=== PATIENT | female | born 1990 | race Caucasian/White ===

== ENCOUNTER 2017-08-21 15:57 | Emergency (ER) | payer SELFPAY ==
[2017-08-21 16:12] VITALS: BP 107/54; PULSE 63; RESP 18; TEMP 97.3
--- NOTE | 2017-08-21 16:44 | XR ---
Right ankle HISTORY: Pain 3 views of the right ankle Bone mineralization, joint spaces and alignment are maintained. No significant soft tissue swelling. No fracture or dislocation. IMPRESSION: No significant abnormality is evident.
--- NOTE | 2017-08-21 16:54 | ED ---
General Adult HPI - General Chief complaint: Extremity Injury, Lower Stated complaint: lump on ankle Time Seen by Provider: 08/21/17 16:06 Source: patient Mode of arrival: ambulatory Limitations: no limitations - History of Present Illness Initial comments: 27-year-old female patient presents to the emergency department today for evaluation of bumps to her right ankle. Patient states that these areas have been present for "months". She states that they become more painful and swollen when she stands for long periods of time. Patient states when she fully flexes her foot the pain increases. She states at this time they are not bothering her very much. States that she is tired of the pain and wants to find out what these spots are. She denies any new or old injury to the foot. She denies any numbness or tingling to the foot. Denies any difficulty in relating. Patient denies any recent fever, chills, shortness breath, chest pain , abdominal pain, nausea, vomiting, diarrhea, constipation, back pain, numbness , tingling, headache, visual changes, hematuria, dysuria, urinary frequency, urinary urgency, or any other complaints. - Related Data Previous Rx's Medication Instructions Recorded Omeprazole 20 mg PO DAILY #30 cap 01/24/16 Ranitidine HCl [Zantac] 150 mg PO BID #60 tab 01/24/16 Allergies Allergy/AdvReac Type Severity Reaction Status Date / Time No Known Allergies Allergy Verified 08/21/17 16:12 Review of Systems ROS Statement: Those systems with pertinent positive or pertinent negative responses have been documented in the HPI. ROS Other: All systems not noted in ROS Statement are negative. Past Medical History Past Medical History: No Reported History History of Any Multi-Drug Resistant Organisms: MRSA Date of last positivie culture/infection: 2013/buttocks MDRO Source:: MRSA Past Surgical History: No Surgical Hx Reported Past Psychological History: Anxiety, Depression Smoking Status: Current every day smoker Past Alcohol Use History: None Reported Past Drug Use History: Marijuana General Exam Limitations: no limitations General appearance: alert, in no apparent distress, other (This is a well- developed, well-nourished, healthy-appearing 27-year-old female patient in no acute distress. Vital signs upon presentation her temperature 97.3F, pulse 63 , respirations 18, blood pressure 107/54, pulse ox 98% on room air.) Eye exam: Present: normal appearance, PERRL, EOMI. Absent: scleral icterus, conjunctival injection, periorbital swelling ENT exam: Present: normal exam, normal oropharynx, mucous membranes moist Neck exam: Present: normal inspection. Absent: tenderness, meningismus, lymphadenopathy Respiratory exam: Present: normal lung sounds bilaterally. Absent: respiratory distress, wheezes, rales, rhonchi, stridor Cardiovascular Exam: Present: regular rate, normal rhythm, normal heart sounds. Absent: systolic murmur, diastolic murmur, rubs, gallop, clicks Extremities exam: Present: normal inspection, full ROM, normal capillary refill , other (Patient has a hard nodule to the right anterior ankle, and the right distal pretibial area. Skin is pink, warm, and dry. No evidence of erythema. Areas are firm to palpation. There is no evidence of abscess or fluctuance. Pedal posttibial pulses are 2+ and equal bilaterally. Patient has full range of motion of the joint without limitation. Patient complains of increased pain with full flexion of the right ankle joint.). Absent: tenderness, pedal edema, joint swelling, calf tenderness Neurological exam: Present: alert, oriented X3, CN II-XII intact Psychiatric exam: Present: normal affect, normal mood Skin exam: Present: warm, dry, intact, normal color. Absent: rash Course Vital Signs 08/21/17 16:09 Temperature 97.3 F L Pulse Rate 63 Respiratory 18 Rate Blood Pressure 107/54 O2 Sat by Pulse 98 Oximetry Medical Decision Making - Medical Decision Making 27 old female patient presented for evaluation of nodules to her right ankle. Physical exam was unremarkable. Did reveal 2 small nodules to the right anterior ankle and the right distal pretibial area. These areas were firm to palpation. No fluctuance or evidence of abscess or infection. Patient be discharged home to follow-up with orthopedics for further evaluation. She is also instructed to follow-up with her primary care physician. Patient came very angry at discharge saying that she didn't have time to follow up outpatient and she was upset that we weren't able to tell her exactly what was going out her leg. Patient was ambulated without difficulty. Vital signs are stable. She is instructed on appropriate Tylenol for pain control. She is instructed to return here immediately for any new, worsening, or concerning symptoms. - Radiology Data Radiology results: report reviewed, image reviewed 3 views of the right ankle show bone mineralization, joint spaces, and align are maintained. No significant soft tissue swelling. No fracture or dislocation. Impression by Dr. Marcano shows no significant abnormality. Disposition Clinical Impression: Ankle pain, Localized swelling, mass and lump, right lower limb Disposition: HOME SELF-CARE Condition: Good Instructions: Arthralgia (ED) Additional Instructions: Follow-up with orthopedics for further evaluation. Take ibuprofen or tylenol for pain control. Return here immediately for any new, worsening, or concerning symptoms. Referrals: None,Stated [Primary Care Provider] - 1-2 days Time of Disposition: 16:54
== END 2017-08-21 16:58 | disposition home or self-care (01) ==
LOC: EC 15:57
DX: M25.571 Pain in right ankle and joints of right foot (principal); R22.41 Localized swelling, mass and lump, right lower limb; F17.200 Nicotine dependence, unspecified, uncomplicated; Z86.14 Personal history of Methicillin resistant Staphylococcus aureus infection
CPT/HCPCS: 99283

== ENCOUNTER 2018-12-02 06:48 | Inpatient (IN) | payer OTHER ==
[2018-12-02] MEDS ORDERED: OXYTOCIN 10 UNIT/ML 1 ML VIAL IM PRN (06:53)
[2018-12-02] MEDS ORDERED: TERBUTALINE 1 MG/ML VIAL SQ PRN (06:53)
[2018-12-02] MEDS ORDERED: LIDOCAINE 0.5% (PF) 5 MG/ML (50 ML SDV) SQ PRN (06:53)
[2018-12-02] MEDS ORDERED: METHYLERGONOVINE 0.2 MG/ML 1 ML AMP IM PRN (06:53)
[2018-12-02] MEDS ORDERED: CARBOPROST TROMETHAMINE 250 MCG/ML 1 ML AMP IM PRN (06:53)
[2018-12-02] MEDS ORDERED: BUTORPHANOL 1 MG/ML 1 ML VIAL IV PRN (06:54)
--- NOTE | 2018-12-02 06:59 | P.HPOB ---
History of Present Illness H&P Date: 12/02/18 Chief Complaint: 39+ weeks, LGA, polyhydramnios, induction The patient is a 28-year-old 3 para 2001 admitted at 39-2/7 weeks as established by last menstrual period and confirmed by 9 week ultrasound. She is admitted for elective induction of labor with all signs reassuring. Her has been complicated only by the third trimester findings of a large for gestational age fetus with growth at greater than 97th percentile at approximately 35 weeks. Additionally polyhydramnios was discovered as well. On admission, all signs are reassuring. Group B strep status is negative. Obstetrical history: 3 para 2001 with 2 term vaginal deliveries without complications. Current statistics are listed in history present illness. EDC of 12/07/2018 was established by last menstrual period and confirmed by 9 week ultrasound. Laboratory workup demonstrates a blood type of A+ with a negative antibody screen. Rubella status is immune. Remainder of the laboratory workup was within normal limits the she initially had a positive Chlamydia culture which was treated and tested for cure. One hour Glucola was within normal limits and group B strep status is negative. Gynecologic history: Relatively unremarkable with no history of any significant ear infections aside from the Chlamydia detected at her first visit which was treated and cured. Review of Systems Review of systems is confined to history of present illness. Past Medical History Past Medical History: No Reported History History of Any Multi-Drug Resistant Organisms: MRSA Date of last positivie culture/infection: 2013/buttocks MDRO Source:: MRSA Past Surgical History: No Surgical Hx Reported Smoking Status: Former smoker Medications and Allergies Home Medications Medication Instructions Recorded Confirmed Type No Known Home Medications 09/26/18 09/26/18 History Allergies Allergy/AdvReac Type Severity Reaction Status Date / Time No Known Allergies Allergy Verified 09/26/18 19:06 Exam In general, this is a well-developed, well-nourished white female in no acute distress. Her heart has a regular rhythm and rate without murmur. Her lungs are clear to auscultation bilaterally in all fajardo. Her abdomen is gravid, nondistended, has normal active bowel sounds, is soft, nontender, and without any palpable masses aside from uterine fundus. Her extremities are without any cyanosis, clubbing, or significant edema and are nontender to palpation bilaterally. Digital cervical examination has demonstrated her cervix to be 2- 3 cm dilated, approximately 50-60% effaced, with the vertex in presentation at - 2 station. Assessment and Plan (1) Term Current Visit: Yes Status: Acute Code(s): Z34.80 - ENCOUNTER FOR SUPRVSN OF NORMAL , UNSP TRIMESTER SNOMED Code(s): 80120926 (2) Large for gestational age fetus Current Visit: Yes Status: Acute Code(s): VBK4256 - SNOMED Code(s): 983484378 Plan: The patient is admitted for an elective induction of labor understanding that there are some increased risks for section that may not exist if labor ensued on its own. As result, she will have Pitocin augmentation started and undergo artificial rupture of membranes. She'll have close maternal and surveillance and expectant management will be practiced. She is a good candidate for either IV or epidural analgesia, whichever she may choose.
[2018-12-02] MEDS ORDERED: OXYTOCIN 30 UNITS/500 ML NS 30 UNIT in SALINE 1 500ML.BAG IV SCH (07:00)
[2018-12-02 07:37] LABS: Basophils % (A) 0 %; Eosinophils # (A) 0.1 k/uL (0-0.7); Eosinophils % (A) 1 %; HCT 34.9 % (34.0-46.0); HGB 11.6 gm/dL (11.4-16.0); Lymphocytes # (A) 1.4 k/uL (1.0-4.8); Lymphocytes % (A) 14 %; MCH 30.2 pg (25.0-35.0); MCHC 33.1 g/dL (31.0-37.0); MCV 91.2 fL (80.0-100.0); Mean Platelet Volume 8.4; Monocytes # (A) 0.6 k/uL (0-1.0); Monocytes % (A) 7 %; Neutrophils # (A) 7.3 k/uL (1.3-7.7); Neutrophils % (A) 76 %; Platelet Count 226 k/uL (150-450); RBC 3.83 m/uL (3.80-5.40); RDW 13.1 % (11.5-15.5); WBC 9.6 k/uL (3.8-10.6)
[2018-12-02] MEDS: LACTATED RINGERS 1,000 ML IV SCH ×3 (07:42→11:44)
[2018-12-02 07:54] VITALS: BMI 34.9
[2018-12-02] MEDS ORDERED: ROPIVACAINE 100 MG, fentaNYL (PF) 200 MCG in SODIUM CHLORIDE 0.9% 76 ML EPIDURAL ONE (12:19)
[2018-12-02] MEDS ORDERED: SIMETHICONE 80 MG CHEWABLE PO PRN (17:39)
[2018-12-02] MEDS ORDERED: LANOLIN CREAM 5 GM TUBE TOPICAL PRN (17:39)
[2018-12-02] MEDS ORDERED: diphenhydrAMINE 25 MG CAP PO PRN (17:39)
[2018-12-02] MEDS ORDERED: HYDROCORTISONE 2.5% RECTAL CREAM 30 GM TUBE RECTAL PRN (17:39)
[2018-12-02] MEDS ORDERED: HYDROcodone/APAP 5-325MG 1 EACH TAB PO PRN (17:39)
[2018-12-02] MEDS ORDERED: BENZOCAINE/MENTHOL SPRAY 1 GM/SPRAY AEROSOL TOPICAL PRN (17:39)
[2018-12-02] MEDS ORDERED: diphenhydrAMINE 50 MG CAP PO PRN (17:39)
[2018-12-02] MEDS ORDERED: diphenhydrAMINE 50 MG/ML 1 ML VIAL IVP PRN ×2 (17:39)
[2018-12-02] MEDS ORDERED: ACETAMINOPHEN TAB 325 MG TAB PO PRN (17:39)
[2018-12-02] MEDS ORDERED: WITCH HAZEL 1 EACH MED..PAD TOPICAL PRN (17:39)
[2018-12-02] MEDS ORDERED: HYDROcodone/APAP 7.5-325MG 1 EACH TAB PO PRN (17:39)
[2018-12-02] MEDS ORDERED: ZOLPIDEM 5 MG TAB PO PRN (17:39)
--- NOTE | 2018-12-02 17:42 | P.PROBDLV ---
Vaginal Delivery Note - . Vaginal Delivery Note: The patient is a 28-year-old 3 para 2001 admitted at 39-2/7 weeks by good dating parameters. She is admitted for elective induction of labor with a suspected macrosomic fetus with estimated weight at greater than 97th percentile. She also was found polyhydramnios. On labor and delivery, all signs reassuring. She had Pitocin started and underwent artificial rupture of membranes demonstrating clear fluid. She progressed to the active phase of labor at which time an epidural catheter was placed for analgesia. She then made steady progress to the afternoon to complete and 0 station. She pushed over the course of approximately 30 minutes to a normal spontaneous vaginal delivery of a viable 9 lbs. 10 oz. baby boy with Apgars of 9 at 1 minute and 9 at 5 minutes delivered in the left occiput anterior position. There was a nuchal cord 1 which was reduced following delivery of the infant. The placenta was delivered spontaneously, intact, and grossly normal with a grossly normal three-vessel cord inserted slightly off of the center of the placental disc. There were no lacerations of the perineum, vagina, or cervix. Estimated blood loss was approximately 150 mL. There were no complications. All sponge, instrument, and needle counts were correct. Both mother and infant are resting comfortably in recovery.
[2018-12-02] MEDS ORDERED: OXYTOCIN 20 UNITS/1000 ML NS 1,000 ML IV SCH (17:45)
[2018-12-02] MEDS: SENNOSIDES-DOCUSATE SODIUM 1 EACH TAB PO SCH (20:33)
[2018-12-02] MEDS: IBUPROFEN 600 MG TAB PO PRN (20:33)
--- NOTE | 2018-12-03 07:38 | P.DS ---
Providers Date of admission: 12/02/18 06:48 Expected date of discharge: 12/03/18 Attending physician: Rikki Arboleda Primary care physician: Stated None - Discharge Diagnosis(es) (1) Term Current Visit: Yes Status: Acute (2) Large for gestational age fetus Current Visit: Yes Status: Acute (3) Normal spontaneous vaginal delivery Current Visit: Yes Status: Acute Hospital Course: The patient is a 28 year 3 para 2 scissors or 2 admitted at 39-2/7 weeks by good dating parameters. She is admitted for elective induction with all signs reassuring. Her was uncomplicated though the fetus was found to be a greater than 97th percentile growth in the third trimester and polyhydramnios was noted as well. Group B strep status was negative. On labor and delivery, she had Pitocin started followed by artificial rupture of membranes. She had an epidural catheter placed for analgesia and then made routine progress through the active phase of labor to complete. She pushed to a normal spontaneous vaginal delivery of a viable 9 lbs. 10 oz. baby boy with Apgars of 9 at 1 minute and 9 at 5 minutes. Her course was unremarkable with vital signs remained stable and her temperature was afebrile throughout. She was deemed stable for discharge on day #1 was discharged home to follow-up in the office in 6 weeks' time routinely. Discharge instructions included calling for any significantly increased bleeding or foul-smelling lochia, significantly increased fever or abdominal pain, perineal complaints, breast complaints, or anything else that concerned her. She is additionally instructed to have nothing in the vagina for at least 6 weeks time to include intercourse. She understood her instructions and agrees to follow up as noted above. Discharge medications included only over- the-counter analgesic pain medications and continue vitamins as she has opted to breast-feed. Maternal blood type is A+ and rubella status is immune. Procedures: #1. Pitocin induction #2. Artificial rupture of membranes #3. Epidural analgesia #4. Normal spontaneous vaginal delivery Patient Condition at Discharge: Good Plan - Discharge Summary New Discharge Prescriptions: No Action No Known Home Medications Discharge Medication List No Known Home Medications 09/26/18 [History] Follow up Appointment(s)/Referral(s): Rikki Arboleda MD [STAFF PHYSICIAN] - 6 Weeks Discharge Disposition: HOME SELF-CARE
[2018-12-03] MEDS: SENNOSIDES-DOCUSATE SODIUM 1 EACH TAB PO SCH (08:02)
[2018-12-03] MEDS: IBUPROFEN 600 MG TAB PO PRN (13:17)
[2018-12-03 17:03] VITALS: BP 120/63; PULSE 81; RESP 16; TEMP 98.1
== END 2018-12-03 18:50 | disposition home or self-care (01) | DRG 807 ==
LOC: 4FBP 06:48
PROVIDERS: ADMIT Obstetrics & Gynecology; ATTEND Obstetrics & Gynecology
PROC: 10E0XZZ Delivery of Products of Conception, External Approach (ICD-10-PCS; principal; 2018-12-02)
PROC: 3E033VJ Introduction of Other Hormone into Peripheral Vein, Percutaneous Approach (ICD-10-PCS; 2018-12-02)
PROC: 10907ZC Drainage of Amniotic Fluid, Therapeutic from Products of Conception, Via Natural or Artificial Opening (ICD-10-PCS; 2018-12-02)
PROC: 00HU33Z Insertion of Infusion Device into Spinal Canal, Percutaneous Approach (ICD-10-PCS; 2018-12-02)
PROC: 3E0R3BZ Introduction of Anesthetic Agent into Spinal Canal, Percutaneous Approach (ICD-10-PCS; 2018-12-02)
DX: O40.3XX0 Polyhydramnios, third trimester, not applicable or unspecified (principal); Z37.0 Single live birth; O36.63X0 Maternal care for excessive fetal growth, third trimester, not applicable or unspecified; O69.81X0 Labor and delivery complicated by cord around neck, without compression, not applicable or unspecified; Z3A.39 39 weeks gestation of pregnancy; Z86.14 Personal history of Methicillin resistant Staphylococcus aureus infection; Z87.891 Personal history of nicotine dependence
CPT/HCPCS: 85025; 86850; 86900; 86901

== ENCOUNTER 2019-01-25 08:30 | Emergency (ER) | payer OTHER ==
[2019-01-25] MEDS ORDERED: ONDANSETRON 4 MG/2 ML VIAL IVP STA (08:54)
[2019-01-25] MEDS ORDERED: SODIUM CHLORIDE 0.9% 1,000 ML IV STA ×2 (08:54)
[2019-01-25] MEDS ORDERED: PANTOPRAZOLE 40 MG/10 ML VIAL IVP STA (08:54)
[2019-01-25] MEDS ORDERED: MAG HYDROX/AL HYDROX/SIMETH 30 ML, HYOSCYAMINE ELIXIR 10 ML, CIMETIDINE HCL 300 MG, LID... PO STA ×4 (08:55)
--- NOTE | 2019-01-25 08:56 | ED ---
Abdominal Pain HPI - General Chief Complaint: Abdominal Pain Stated Complaint: HEARTBURN, NAUSEA, UPPER ABDOMINAL PAIN Time Seen by Provider: 01/25/19 08:42 Source: patient, RN notes reviewed, old records reviewed Mode of arrival: ambulatory Limitations: no limitations - History of Present Illness Initial Comments: Patient is a 28-year-old female presents emergency department today with onset of right upper quadrant epigastric abdominal pain. She complains of heartburn type symptoms. She states symptoms started at 11 PM. She denies any chest pain or shortness of breath. Patient states that she's had no triggering foods to cause the onset of her pain. - Related Data Previous Rx's Medication Instructions Recorded Omeprazole 40 mg PO DAILY #20 capsule. 01/25/19 Ondansetron Odt [Zofran Odt] 4 mg PO Q8HR PRN #20 tab 01/25/19 Allergies Allergy/AdvReac Type Severity Reaction Status Date / Time No Known Allergies Allergy Verified 01/25/19 08:35 Review of Systems ROS Statement: Those systems with pertinent positive or pertinent negative responses have been documented in the HPI. ROS Other: All systems not noted in ROS Statement are negative. Past Medical History Past Medical History: No Reported History History of Any Multi-Drug Resistant Organisms: MRSA Date of last positivie culture/infection: 2013/buttocks MDRO Source:: MRSA Past Surgical History: No Surgical Hx Reported Past Anesthesia/Blood Transfusion Reactions: No Reported Reaction Past Psychological History: No Psychological Hx Reported, Anxiety, Depression Smoking Status: Former smoker Past Alcohol Use History: None Reported Past Drug Use History: None Reported - Past Family History Mother Family Medical History: Hypertension General Exam - General Exam Comments Initial Comments: Well-appearing 28-year-old female. No significant distress. Limitations: no limitations General appearance: alert, in no apparent distress Head exam: Present: atraumatic, normocephalic, normal inspection Eye exam: Present: normal appearance, PERRL, EOMI. Absent: scleral icterus, conjunctival injection, periorbital swelling ENT exam: Present: normal exam, mucous membranes moist Neck exam: Present: normal inspection. Absent: tenderness, meningismus, lymphadenopathy Respiratory exam: Present: normal lung sounds bilaterally. Absent: respiratory distress, wheezes, rales, rhonchi, stridor Cardiovascular Exam: Present: regular rate, normal rhythm, normal heart sounds. Absent: systolic murmur, diastolic murmur, rubs, gallop, clicks GI/Abdominal exam: Present: soft, tenderness (Epigastric right upper quadrant te nderness.), normal bowel sounds. Absent: distended, guarding, rebound, rigid Extremities exam: Present: normal inspection, full ROM, normal capillary refill. Absent: tenderness, pedal edema, joint swelling, calf tenderness Back exam: Present: normal inspection Neurological exam: Present: alert, oriented X3, CN II-XII intact Psychiatric exam: Present: normal affect, normal mood Course Vital Signs 01/25/19 08:35 Temperature 98.2 F Pulse Rate 73 Respiratory 18 Rate Blood Pressure 125/78 O2 Sat by Pulse 98 Oximetry Medical Decision Making - Medical Decision Making Patient is a 28-year-old female with onset of GERD-like symptoms epigastric pain starting at 11 PM last night. She denies any specific triggering foods but did state later, she had some Unasyn but her fingers. Patient complains of heartburn-like symptoms. On exam she did have some right upper quadrant epiga stric tenderness. She was given IV fluids labwork obtained. Lab work including liver enzymes and kidney function was unremarkable. Urinalysis shows 10 white blood cells of 9 squamous cells. Concern for him contamination. No signs of UTI. Patient at this time has a normal KUB. Patient feels better after receiving GI cocktail proptotic. I discussed that she should take daily and acetaminophen. Discussed possibility of an ulcer. Patient advised on food triggers and close follow-up with PCP. All questions answered return parameters were discussed. - Lab Data Result diagrams: 01/25/19 09:14 01/25/19 09:14 Lab Results 01/25/19 01/25/19 01/25/19 Range/Units 09:14 09:14 09:14 WBC 11.2 H (3.8-10.6) k/uL RBC 4.54 (3.80-5.40) m/uL Hgb 12.8 (11.4-16.0) gm/dL Hct 39.9 (34.0-46.0) % MCV 87.9 (80.0-100.0) fL MCH 28.2 (25.0-35.0) pg MCHC 32.1 (31.0-37.0) g/dL RDW 13.6 (11.5-15.5) % Plt Count 254 (150-450) k/uL Neutrophils % 89 % Lymphocytes % 7 % Monocytes % 3 % Eosinophils % 1 % Basophils % 0 % Neutrophils # 9.9 H (1.3-7.7) k/uL Lymphocytes # 0.8 L (1.0-4.8) k/uL Monocytes # 0.3 (0-1.0) k/uL Eosinophils # 0.1 (0-0.7) k/uL Basophils # 0.0 (0-0.2) k/uL PT 9.5 (9.0-12.0) sec INR 0.9 (<1.2) APTT 23.2 (22.0-30.0) sec Sodium 139 (137-145) mmol/L Potassium 4.4 (3.5-5.1) mmol/L Chloride 107 (98-107) mmol/L Carbon Dioxide 25 (22-30) mmol/L Anion Gap 7 mmol/L BUN 14 (7-17) mg/dL Creatinine 0.57 (0.52-1.04) mg/dL Est GFR (CKD-EPI)AfAm >90 (>60 ml/min/1.73 sqM) Est GFR (CKD-EPI)NonAf >90 (>60 ml/min/1.73 sqM) Glucose 115 H (74-99) mg/dL Calcium 9.4 (8.4-10.2) mg/dL Total Bilirubin 0.3 (0.2-1.3) mg/dL AST 26 (14-36) U/L ALT 28 (9-52) U/L Alkaline Phosphatase 63 (38-126) U/L Total Protein 5.9 L (6.3-8.2) g/dL Albumin 3.7 (3.5-5.0) g/dL Amylase <30 L (30-110) U/L Lipase 58 (23-300) U/L Urine Color Urine Appearance (Clear) Urine pH (5.0-8.0) Ur Specific [place] (1.001-1.035) Urine Protein (Negative) Urine Glucose (UA) (Negative) Urine Ketones (Negative) Urine Blood (Negative) Urine Nitrite (Negative) Urine Bilirubin (Negative) Urine Urobilinogen (<2.0) mg/dL Ur Leukocyte Esterase (Negative) Urine RBC (0-5) /hpf Urine WBC (0-5) /hpf Ur Squamous Epith Cells (0-4) /hpf Urine Bacteria (None) /hpf 01/25/19 Range/Units 09:14 WBC (3.8-10.6) k/uL RBC (3.80-5.40) m/uL Hgb (11.4-16.0) gm/dL Hct (34.0-46.0) % MCV (80.0-100.0) fL MCH (25.0-35.0) pg MCHC (31.0-37.0) g/dL RDW (11.5-15.5) % Plt Count (150-450) k/uL Neutrophils % % Lymphocytes % % Monocytes % % Eosinophils % % Basophils % % Neutrophils # (1.3-7.7) k/uL Lymphocytes # (1.0-4.8) k/uL Monocytes # (0-1.0) k/uL Eosinophils # (0-0.7) k/uL Basophils # (0-0.2) k/uL PT (9.0-12.0) sec INR (<1.2) APTT (22.0-30.0) sec Sodium (137-145) mmol/L Potassium (3.5-5.1) mmol/L Chloride (98-107) mmol/L Carbon Dioxide (22-30) mmol/L Anion Gap mmol/L BUN (7-17) mg/dL Creatinine (0.52-1.04) mg/dL Est GFR (CKD-EPI)AfAm (>60 ml/min/1.73 sqM) Est GFR (CKD-EPI)NonAf (>60 ml/min/1.73 sqM) Glucose (74-99) mg/dL Calcium (8.4-10.2) mg/dL Total Bilirubin (0.2-1.3) mg/dL AST (14-36) U/L ALT (9-52) U/L Alkaline Phosphatase (38-126) U/L Total Protein (6.3-8.2) g/dL Albumin (3.5-5.0) g/dL Amylase (30-110) U/L Lipase (23-300) U/L Urine Color Light Yellow Urine Appearance Cloudy H (Clear) Urine pH 6.5 (5.0-8.0) Ur Specific [place] 1.009 (1.001-1.035) Urine Protein Negative (Negative) Urine Glucose (UA) Negative (Negative) Urine Ketones Negative (Negative) Urine Blood Negative (Negative) Urine Nitrite Negative (Negative) Urine Bilirubin Negative (Negative) Urine Urobilinogen <2.0 (<2.0) mg/dL Ur Leukocyte Esterase Large H (Negative) Urine RBC 2 (0-5) /hpf Urine WBC 10 H (0-5) /hpf Ur Squamous Epith Cells 9 H (0-4) /hpf Urine Bacteria Rare H (None) /hpf Disposition Clinical Impression: Peptic gastritis Disposition: HOME SELF-CARE Condition: Good Instructions (If sedation given, give patient instructions): Gastroesophageal Reflux Disease (ED) Additional Instructions: Patient resting medications as prescribed. Follow-up with primary care doctor. If any alarming signs or symptoms occur return to emergency department for reevaluation. Advised to have a bland diet for the next 24-48 hours.He foods or chocolate or acidic foods. Prescriptions: Omeprazole 40 mg PO DAILY #20 capsule. Ondansetron Odt [Zofran Odt] 4 mg PO Q8HR PRN #20 tab PRN Reason: Nausea Is patient prescribed a controlled substance at d/c from ED?: No Referrals: None,Stated [Primary Care Provider] - 1-2 days
[2019-01-25 09:25] LABS: Basophils % (A) 0 %; Eosinophils # (A) 0.1 k/uL (0-0.7); Eosinophils % (A) 1 %; HCT 39.9 % (34.0-46.0); HGB 12.8 gm/dL (11.4-16.0); Lymphocytes # (A) 0.8 k/uL (1.0-4.8); Lymphocytes % (A) 7 %; MCH 28.2 pg (25.0-35.0); MCHC 32.1 g/dL (31.0-37.0); MCV 87.9 fL (80.0-100.0); Mean Platelet Volume 6.8; Monocytes # (A) 0.3 k/uL (0-1.0); Monocytes % (A) 3 %; Neutrophils # (A) 9.9 k/uL (1.3-7.7); Neutrophils % (A) 89 %; Platelet Count 254 k/uL (150-450); RBC 4.54 m/uL (3.80-5.40); RDW 13.6 % (11.5-15.5); WBC 11.2 k/uL (3.8-10.6)
[2019-01-25 09:33] LABS: INR 0.9 (<1.2); Partial Thromboplastin Time 23.2 sec (22.0-30.0); Prothrombin Time 9.5 sec (9.0-12.0)
--- NOTE | 2019-01-25 09:37 | XR ---
EXAMINATION TYPE: XR KUB , 2 VIEWS DATE OF EXAM ORDERED: 01/25/2019 HISTORY: abdominal pain. COMPARISON: None. FINDINGS: The lung bases are clear. The abdominal gas pattern is within normal limits. There is no evidence of obstruction or free air. N o unusual calcifications are seen. IMPRESSION: NO ACUTE INTRA-ABDOMINAL ABNORMALITY. FINDINGS MAY REFLECT EARLY ILEUS.
[2019-01-25 09:40] LABS: ALT 28 U/L (9-52); AST 26 U/L (14-36); Albumin 3.7 g/dL (3.5-5.0); Alkaline Phosphatase 63 U/L (38-126); Amylase <30 U/L (30-110); Anion Gap 7 mmol/L; Appearance,Urine Cloudy (Clear); Bacteria,Urine Rare /hpf; Bilirubin,Urine Negative (Negative); Blood Urea Nitrogen 14 mg/dL (7-17); Blood,Urine Negative (Negative); Calcium 9.4 mg/dL (8.4-10.2); Carbon Dioxide 25 mmol/L (22-30); Chloride 107 mmol/L (98-107); Color,Urine Light Yellow; Glucose 115 mg/dL (74-99); Glucose,Urine (UA) Negative (Negative); Ketones,Urine Negative (Negative); Leukocyte Esterase,Urine Large (Negative); Lipase 58 U/L (23-300); Nitrite,Urine Negative (Negative); PH, Urine 6.5 (5.0-8.0); Potassium 4.4 mmol/L (3.5-5.1); Protein,Urine Negative (Negative); RBC,Urine 2 /hpf (0-5); Sodium 139 mmol/L (137-145); Specific Gravity,Urine 1.009 (1.001-1.035); Squamous Epithelial Cell,Urine 9 /hpf (0-4); Total Bilirubin 0.3 mg/dL (0.2-1.3); Total Protein 5.9 g/dL (6.3-8.2); Urobilinogen,Urine <2.0 mg/dL (<2.0); WBC,Urine 10 /hpf (0-5)
[2019-01-25 10:27] VITALS: BP 128/70; PULSE 71; RESP 16; TEMP 97.9
== END 2019-01-25 10:26 | disposition home or self-care (01) ==
LOC: EC 08:30
DX: K29.70 Gastritis, unspecified, without bleeding (principal); Z87.891 Personal history of nicotine dependence; Z86.14 Personal history of Methicillin resistant Staphylococcus aureus infection
CPT/HCPCS: 36415; 80053; 82150; 83690; 85025; 85610; 85730; 81001; 74018; 99284; 96374; 96375; 96361; J2405; C9113

== ENCOUNTER 2019-01-29 23:26 | Inpatient (IN) | payer OTHER ==
--- NOTE | 2019-01-29 23:41 | ED ---
Chest Pain HPI - General Chief Complaint: Chest Pain Stated Complaint: Chest Pain x 1 wk Time Seen by Provider: 01/29/19 23:39 Source: patient Mode of arrival: ambulatory Limitations: no limitations - History of Present Illness Initial Comments: Stephany is 28 her old female presents to the emergency department today for evaluation of persistent chest pain. Patient was seen and evaluated last week at which time to be lower and was thought to be GERD. However today patient reports the pain seems to be in her bilateral lower chest, is pleuritic in kevin ure worse with inspiration or movement she reports she feels better when she is curled up in a ball. She reports feeling short of breath because she has pain with deep inspiration. She denies any cough, fevers or chills. Patient has no cardiac history. Patient is 2 months she has no history of DVT or PE in the past. She is a nonsmoker. She reports she's been compliant with recommendations for GERD diet and is been taking [id number] medications however she continues to have this discomfort. She reports that yesterday she took Motrin before bedtime and that made her slightly more comfortable although she remained in pain, tonight she took Motrin with no relief which prompted her to come to the ER for evaluation. - Related Data Previous Rx's Medication Instructions Recorded Omeprazole 40 mg PO DAILY #20 capsule. 01/25/19 Ondansetron Odt [Zofran Odt] 4 mg PO Q8HR PRN #20 tab 01/25/19 Allergies Allergy/AdvReac Type Severity Reaction Status Date / Time No Known Allergies Allergy Verified 01/25/19 08:35 Review of Systems ROS Statement: Those systems with pertinent positive or pertinent negative responses have been documented in the HPI. ROS Other: All systems not noted in ROS Statement are negative. EKG Findings - EKG Comments: EKG Findings:: EKG was obtained at 2340, rate of 73 rhythm is sinus there is a normal axis her normal intervals, MI 146, QRS 110, QTC is 469 there does appear to be an incomplete right bundle branch block there are no acute ST elevations or depressions there is no evidence of acute ischemia or infarction. When EKG was compared to previous bundle branch block is persistent and there is no significant change in morphology Past Medical History Past Medical History: No Reported History History of Any Multi-Drug Resistant Organisms: MRSA Date of last positivie culture/infection: 2013/buttocks MDRO Source:: MRSA Past Surgical History: No Surgical Hx Reported Past Anesthesia/Blood Transfusion Reactions: No Reported Reaction Past Psychological History: Anxiety, Depression Smoking Status: Former smoker Past Alcohol Use History: None Reported Past Drug Use History: None Reported - Past Family History Mother Family Medical History: Hypertension General Exam - General Exam Comments Initial Comments: Physical Exam GENERAL: Patient is well-developed and well-nourished. Appears uncomfortable HENT: Normocephalic, Atraumatic. EYES: PERRL, EOMI PULMONARY: Unlabored respirations. No audible rales rhonchi or wheezing was noted. CARDIOVASCULAR: There is a regular rate and rhythm without any murmurs gallops or rubs. ABDOMEN: Mild tenderness to palpation in epigastrium SKIN: Skin is clear with no lesions or rashes and otherwise unremarkable. : Deferred NEUROLOGIC: Patient is alert and oriented x3. Moving all extremities spontaneously MUSCULOSKELETAL: Normal extremities with adequate strength and full range of motion. No lower extremity swelling or edema. No calf tenderness. PSYCHIATRIC: Normal psychiatric evaluation. Limitations: no limitations Limitations: no limitations Course Vital Signs 01/29/19 23:30 Temperature 97.7 F Pulse Rate 68 Respiratory 18 Rate Blood Pressure 113/76 O2 Sat by Pulse 100 Oximetry Chest Pain MDM - MDM Patient was seen and evaluated history was obtained from the patient, patient with pain and bilateral lower chest and epigastrium with associated shortness of breath Patient currently being treated for GERD Labs and imaging were ordered D-dimer was elevated CTA was ordered and revealed no acute process in the lungs however there is concern for inflammation of the gallbladder soon ultrasound was ordered which did confirm acute cholecystitis. Patient care was discussed with general surgeon monument setter helper Dr. Mcgee who recommends IV antibiotics patient to be placed in observation for likely surgery later in the day. Patient was updated on plan. Disposition Clinical Impression: Acute cholecystitis Disposition: ADMITTED IP TO THIS HOSP Condition: Stable Is patient prescribed a controlled substance at d/c from ED?: No Referrals: None,Stated [Primary Care Provider] - 1-2 days
--- NOTE | 2019-01-30 00:38 | XR ---
EXAM: XR Chest, 2 Views CLINICAL HISTORY: ITS.REASON XR Reason: Pain TECHNIQUE: Frontal and lateral views of the chest. COMPARISON: No relevant prior studies available. FINDINGS: Lungs: No consolidation. Pleural space: Unremarkable. No pneumothorax. Heart: Unremarkable. Mediastinum: Unremarkable. Bones/joints: No acute fracture. IMPRESSION: No acute cardiopulmonary process.
[2019-01-30 00:46] LABS: ALT 31 U/L (9-52); AST 21 U/L (14-36); Albumin 3.5 g/dL (3.5-5.0); Alkaline Phosphatase 65 U/L (38-126); Anion Gap 7 mmol/L; Blood Urea Nitrogen 11 mg/dL (7-17); Carbon Dioxide 23 mmol/L (22-30); Chloride 107 mmol/L (98-107); Glucose 96 mg/dL (74-99); Lipase 47 U/L (23-300); Magnesium 1.8 mg/dL (1.6-2.3); Potassium 3.8 mmol/L (3.5-5.1); Sodium 137 mmol/L (137-145); Total Bilirubin 0.4 mg/dL (0.2-1.3); Total Protein 5.7 g/dL (6.3-8.2)
[2019-01-30 00:49] LABS: Basophils % (A) 0 %; Eosinophils # (A) 0.2 k/uL (0-0.7); Eosinophils % (A) 1 %; HCT 37.3 % (34.0-46.0); HGB 12.1 gm/dL (11.4-16.0); Lymphocytes % (A) 18 %; MCH 28.5 pg (25.0-35.0); MCHC 32.4 g/dL (31.0-37.0); MCV 87.8 fL (80.0-100.0); Mean Platelet Volume 7.3; Monocytes # (A) 0.7 k/uL (0-1.0); Monocytes % (A) 6 %; Neutrophils # (A) 8.1 k/uL (1.3-7.7); Neutrophils % (A) 73 %; Platelet Count 327 k/uL (150-450); RBC 4.25 m/uL (3.80-5.40); RDW 13.7 % (11.5-15.5); WBC 11.1 k/uL (3.8-10.6)
[2019-01-30] MEDS ORDERED: KETOROLAC 30 MG/ML 1 ML VIAL IVP ONE (01:03)
--- NOTE | 2019-01-30 01:46 | CT ---
EXAM: CT Angiography Chest With Intravenous Contrast CLINICAL HISTORY: ITS.REASON CT Reason: pleuritic pain, elevated dimer TECHNIQUE: Axial computed tomographic angiography images of the chest with intravenous contrast using pulmonary embolism protocol. CTDI is 9.7 mGy and DLP is 430.1 mGy-cm. This CT exam was performed using one or more of the following dose reduction techniques: automated exposure control, adjustment of the mA and/or kV according to patient size, and/or use of iterative reconstruction technique. MIP reconstructed images were created and reviewed. COMPARISON: No relevant prior studies available. FINDINGS: Limitations: Slightly limited by motion artifact. Pulmonary arteries: No evidence of PE. Questionable areas of low attenuation in the left lower lobe likely related to artifact. Aorta: No aortic aneurysm or dissection. Lungs: Minor atelectasis. Minimal peribronchial thickening. No consolidation. Pleural space: No significant effusion. No pneumothorax. Heart: Trace pericardial fluid. Bones/joints: No acute fracture. Soft tissues: Unremarkable as visualized. Lymph nodes: Unremarkable. Gallbladder and bile ducts: Cholelithiasis with gallbladder wall thickening, incompletely imaged but concerning for cholecystitis. IMPRESSION: 1. No evidence of PE or aortic dissection. 2. Cholelithiasis with gallbladder wall thickening, incompletely imaged but concerning for cholecystitis. Correlate clinically, ultrasound may be considered if indicated. 3. Trace pericardial fluid.
--- NOTE | 2019-01-30 04:23 | US ---
EXAM: US Abdomen Limited, Right Upper Quadrant CLINICAL HISTORY: ITS.REASON US Reason: Pain, Ct findings concerning TECHNIQUE: Real-time ultrasound of the right upper quadrant with image documentation. COMPARISON: CT chest 01/30/19. FINDINGS: Liver: The liver measures 18.4 cm in length. Gallbladder: Cholelithiasis. The gallbladder wall measures 5 mm. Positive sonographic Deleon's sign. Common bile duct: The common bile duct measures 8 mm. Pancreas: Not well visualized. Right kidney: The right kidney measures 10.3 cm in length. No significant hydronephrosis. IMPRESSION: Cholelithiasis with gallbladder wall thickening, dilated common bile duct, and positive sonographic Deleon's sign. Findings are compatible with cholecystitis.
[2019-01-30] MEDS ORDERED: NALOXONE 0.4 MG/ML 1 ML VIAL IV PRN (04:42)
[2019-01-30] MEDS ORDERED: PIPERACILLIN-TAZOBACTAM 3.375 GM in SODIUM CHLORIDE 0.9% 100 ML IVPB SCH (05:00)
[2019-01-30] MEDS ORDERED: ONDANSETRON 4 MG/2 ML VIAL IVP STA (05:04)
[2019-01-30] MEDS: SODIUM CHLORIDE 0.9% 1,000 ML IV SCH ×2 (05:23→16:54)
[2019-01-30] MEDS: MORPHINE SULFATE 4 MG/ML SYRINGE IV PRN ×2 (05:24→11:06)
[2019-01-30 06:28] VITALS: BMI 33.0
[2019-01-30] MEDS ORDERED: ceFAZolin IN SWFI 2 GM/20 ML SYRINGE IVP ONE (07:26)
[2019-01-30] MEDS ORDERED: IV FLUID CONTINUATION 1,000 ML IV ONE (11:50)
--- NOTE | 2019-01-30 12:06 | P.GSHP ---
History of Present Illness H&P Date: 01/30/19 CHIEF COMPLAINT: Cholecystitis HISTORY OF PRESENT ILLNESS: The patient is a 28-year-old female who presents with history of atypical chest pain initially presumed for a pulmonary embolism. She also reported epigastric including right upper quadrant abdominal pain with gastroesophageal reflux disease for over 1 week duration of sharp character. She underwent diagnostic studies for her gallbladder consistent with acute cholecystitis. She has been admitted for acute cholecystitis. She reports just giving 2 months ago. PAST MEDICAL HISTORY: Please see list PAST SURGICAL HISTORY: Please see list MEDICATIONS: Please see list ALLERGIES: Denies. SOCIAL HISTORY: Please see list FAMILY HISTORY: Pertinent for gallbladder disease REVIEW OF ORGAN SYSTEMS: CONSTITUTIONAL: No reports of fevers or chills. HEENT: Denies any troubles with the vision or hearing. ENDOCRINE: No reports of hypothyroidism. No diabetes. RESPIRATORY: No recent pneumonias. CARDIOVASCULAR: Denies chest pain or palpitations GI: No blood in stools or constipation. Has GERD. MUSCULOSKELETAL: Has occasional joint pain including back pain. NEURO: No seizure disorders or headaches. No recent stroke. PSYCH: No current depression or suicidal ideation. GENITOURINARY: No active blood in urine. No urinary hesitancy. HEMATOLOGIC: No personal or family history of DVTs or pulmonary emboli. SKIN: No skin cancer. PHYSICAL EXAM: VITAL SIGNS: Afebrile vital signs stable GENERAL: Well-developed pleasant in no acute distress. HEENT: No scleral icterus. Extraocular movements grossly intact. Moist buccal mucosa. NECK: Supple without lymphadenopathy. CHEST: Unlabored respirations. Equal bilateral excursions. CARDIOVASCULAR: Regular rate regular rhythm rhythm. Distal 2+ pulses. ABDOMEN: Soft, nondistended. Tender along the epigastrium and right upper quadrant. MUSCULOSKELETAL: No clubbing, cyanosis, or edema. NEURO: Cranial nerves II to XII within normal limits. No focal or lateralizing s igns. PSYCH: Alert and oriented to person, place and time. SKIN: Well-perfused good skin turgor. ASSESSMENT: 1. Epigastric and right upper quadrant abdominal pain 2. Chronic cholecystitis 3. Symptomatic gallstones. PLAN: 1. Will need a robotic cholecystectomy possible open. Benefits and risks were described. 2. Heparin for DVT prophylaxis 5000 units. 3. Start antibiotics. 4. Possible placement of drain also described with full inpatient admission Past Medical History Past Medical History: No Reported History History of Any Multi-Drug Resistant Organisms: MRSA Date of last positivie culture/infection: 2013/buttocks MDRO Source:: MRSA Past Surgical History: No Surgical Hx Reported Past Anesthesia/Blood Transfusion Reactions: No Reported Reaction Past Psychological History: Anxiety, Depression Smoking Status: Never smoker Past Alcohol Use History: None Reported Past Drug Use History: None Reported - Past Family History Mother Family Medical History: Hypertension Medications and Allergies Home Medications Medication Instructions Recorded Confirmed Type No Known Home Medications 01/30/19 01/30/19 History Allergies Allergy/AdvReac Type Severity Reaction Status Date / Time No Known Allergies Allergy Verified 01/30/19 08:23 Surgical - Exam Vital Signs Temp Pulse Resp BP Pulse Ox 97.7 F 68 18 113/76 100 01/29/19 23:30 01/29/19 23:30 01/29/19 23:30 01/29/19 23:30 01/29/19 23:30 Results - Labs 01/30/19 00:15 01/30/19 00:15 Abnormal Lab Results - Last 24 Hours (Table) 01/30/19 01/30/19 01/30/19 Range/Units 00:15 00:15 00:15 WBC 11.1 H (3.8-10.6) k/uL Neutrophils # 8.1 H (1.3-7.7) k/uL D-Dimer 1.38 H (<0.60) mg/L FEU Total Protein 5.7 L (6.3-8.2) g/dL Diabetes panel 01/30/19 Range/Units 00:15 Sodium 137 (137-145) mmol/L Potassium 3.8 (3.5-5.1) mmol/L Chloride 107 (98-107) mmol/L Carbon Dioxide 23 (22-30) mmol/L BUN 11 (7-17) mg/dL Creatinine 0.63 (0.52-1.04) mg/dL Glucose 96 (74-99) mg/dL Calcium 9.0 (8.4-10.2) mg/dL AST 21 (14-36) U/L ALT 31 (9-52) U/L Alkaline Phosphatase 65 (38-126) U/L Total Protein 5.7 L (6.3-8.2) g/dL Albumin 3.5 (3.5-5.0) g/dL Calcium panel 01/30/19 Range/Units 00:15 Calcium 9.0 (8.4-10.2) mg/dL Albumin 3.5 (3.5-5.0) g/dL Pituitary panel 01/30/19 Range/Units 00:15 Sodium 137 (137-145) mmol/L Potassium 3.8 (3.5-5.1) mmol/L Chloride 107 (98-107) mmol/L Carbon Dioxide 23 (22-30) mmol/L BUN 11 (7-17) mg/dL Creatinine 0.63 (0.52-1.04) mg/dL Glucose 96 (74-99) mg/dL Calcium 9.0 (8.4-10.2) mg/dL Adrenal panel 01/30/19 Range/Units 00:15 Sodium 137 (137-145) mmol/L Potassium 3.8 (3.5-5.1) mmol/L Chloride 107 (98-107) mmol/L Carbon Dioxide 23 (22-30) mmol/L BUN 11 (7-17) mg/dL Creatinine 0.63 (0.52-1.04) mg/dL Glucose 96 (74-99) mg/dL Calcium 9.0 (8.4-10.2) mg/dL Total Bilirubin 0.4 (0.2-1.3) mg/dL AST 21 (14-36) U/L ALT 31 (9-52) U/L Alkaline Phosphatase 65 (38-126) U/L Total Protein 5.7 L (6.3-8.2) g/dL Albumin 3.5 (3.5-5.0) g/dL - Imaging CT scan - abdomen: report reviewed, image reviewed CT scan - pelvis: report reviewed, image reviewed (Acute cholecystitis) US - abdomen: report reviewed, image reviewed Assessment and Plan (1) state Current Visit: Yes Status: Acute Code(s): Z39.2 - ENCOUNTER FOR ROUTINE FOLLOW-UP SNOMED Code(s): 03123992 (2) Acute cholecystitis Current Visit: Yes Status: Acute Code(s): K81.0 - ACUTE CHOLECYSTITIS S NOMED Code(s): 05574386
[2019-01-30] MEDS ORDERED: INDOCYANINE GREEN 25 MG VIAL IV STA (12:07)
[2019-01-30] MEDS ORDERED: ROCURONIUM BROMIDE 10 MG/ML 10 ML VIAL IV ONE (12:25)
[2019-01-30] MEDS ORDERED: PROPOFOL 10 MG/ML 20 ML VIAL IV ONE (12:25)
[2019-01-30] MEDS ORDERED: GLYCOPYRROLATE 0.2 MG/ML 2 ML VIAL ONE (12:25)
[2019-01-30] MEDS ORDERED: fentaNYL (PF) 50 MCG/ML 2 ML AMP ONE (12:25)
[2019-01-30] MEDS ORDERED: SUCCINYLCHOLINE CHLORIDE 100 MG/5 ML SYR IV ONE (12:25)
[2019-01-30] MEDS ORDERED: HYDROmorphone (PF) 1 MG/ML ONE (12:25)
[2019-01-30] MEDS ORDERED: MIDAZOLAM 2 MG/2 ML VIAL ONE (12:25)
[2019-01-30] MEDS ORDERED: NEOSTIGMINE 1 MG/ML 10 ML VIAL ONE (12:25)
[2019-01-30] MEDS ORDERED: LIDOCAINE 1% INJ 10MG/ML (20 ML MDV) ONE (12:25)
[2019-01-30] MEDS ORDERED: KETOROLAC 30 MG/ML 1 ML VIAL ONE (12:25)
[2019-01-30] MEDS ORDERED: HEPARIN SODIUM,PORCINE 5,000 UNIT/ML 1 ML VIAL SQ ONE (12:29)
[2019-01-30] MEDS ORDERED: BUPIVACAIN-EPI 0.25%-1:200,000 30 ML VIAL SQ ONE ×2 (12:43→12:53)
[2019-01-30] MEDS ORDERED: PROMETHAZINE 25 MG TAB PO PRN (15:20)
[2019-01-30] MEDS ORDERED: ONDANSETRON 4 MG/2 ML VIAL IVP PRN (15:20)
--- NOTE | 2019-01-30 15:30 | P.OP ---
Date of Procedure: 01/30/19 Description of Procedure: SURGEON: SARITA STOVALL MD PREOPERATIVE DIAGNOSES: 1. Atypical chest pain 2. Acute cholecystitis with cystic duct obstruction 3. Obesity due to excess calories, BMI 33.1 4. Personal history of MRSA infection 5. Generalized anxiety disorder 6. Depressive disorder, chronic POSTOPERATIVE DIAGNOSES: 1 Hydrops purulent acute cholecystitis with cystic duct obstruction from gallstones 2. Atypical chest pain 3. Acute cholecystitis with cystic duct obstruction 4. Obesity due to excess calories, BMI 33.1 5. Personal history of MRSA infection 6. Generalized anxiety disorder 7. Depressive disorder, chronic 8. Pericholecystic adhesions OPERATION: 1. Robotic-assisted da Annika Xi laparoscopic laparoscopic lysis of adhesions over 45 minutes 2. Robotic-assisted da Annika Xi laparoscopic cholecystectomy, multiport with FIREFLY ESTIMATED BLOOD LOSS: 30 mL. SPECIMENS REMOVED: Gallbladder and peritoneal fluid COMPLICATIONS: None. OPERATIVE FINDINGS: 1. Acute cholecystitis with wandy purulence from gallbladder and hydropic with clear bile 2. Contaminated case with wandy pus from gallbladder with anaerobic and aerobic cultures obtained INDICATIONS: The patient is a 38-year-old female who presents with atypical chest pain including ultrasound and computed tomography scan consistent with acute cholecystitis. Surgical intervention with a laparoscopic cholecystectomy was described at length including injury to the biliary tree, bleeding, infection, need for further surgery. Informed consent was obtained. Robotic assisted laparoscopic approach was described. Benefits and risks of the procedure including but not limited to bleeding, infection, injury to the biliary tree was described. Informed consent was obtained. DESCRIPTION OF PROCEDURE: Patient was brought to the operating room, placed in supine position. After general induction, the abdomen had been prepped and draped in standard sterile fashion. The robotic da Annika XI system was primed. After a timeout protocol was performed, the patient had been prepped and draped in standard sterile fashion. The patient was injected with indocyanine green. A 5 mm 0 degrees laparoscopic trocar entry was performed along the left upper quadrant. The abdomen insufflated to 15 mmHg pressure which was tolerated well. Diagnostic laparoscopy demonstrated no injury to bowel viscera or mesentery. The liver surface was unremarkable. Next, two 8 mm robotic ports were placed along the right upper abdomen. The camera 8-mm port was maintained along the epigastrium. Another 8 mm port was placed along the left upper abdominal wall after exchanging the 5 mm port. Please note that the ports were placed at least 10 to 15 cm away from the target anatomy of the gallbladder. The robot was docked along the left lateral abdomen. The patient was repositioned in reverse Trendelenburg position. Using a grasper for arm 3, a grasper for arm 4, including hook cautery for arm 1, the robotic system was docked and primed as described. Instruments were interchanged by the assistant professor of business including hook cautery, Bovie cautery and clip appliers. I had sat at the console. Moderate omental adhesions were found along the gallbladder consistent with acute cholecystitis and thickened gallbladder wall. Combination of blunt including sharp lysis of adhesions was performed using electro-Bovie cautery including vessel sealer over 45 minutes. The gallbladder fundus was retracted over the dome of the liver. As the gallbladder wall was moderately thickened, dome down technique was performed using electro-Bovie cautery. Once completely mobilized, the cystic duct was dilated however the common bile duct was identified. Using a grasper, the cystic duct including the cystic artery was carefully skeletonized. FIREFLY was used to identify the cystic artery and cystic structures. Large PLASTIC clips were used throughout the entire case. Using a clip shredded filler cigar maker machine 1 clips was placed proximally, and divided distally along the cystic duct using a vessel sealer. Again care was taken to avoid any injury to the biliary tree as the common bile duct was clearly visualized during this portion of dissection The cystic artery was controlled using vessel sealer. Electro-Bovie cautery was used to remove the gallbladder from the hepatic fossa. Hemostasis was checked and found to be adequate. Aerobic and anaerobic cultures was obtained of the peritoneal fluid and gallbladder fluid. The liver bed was dry. The clip was intact. The robot was undocked. I re-scrubbed into the case. Using a 10 mm Endo Catch bag via the left upper quadrant incision, the specimen was removed from the abdominal cavity. All pneumoperitoneum instruments were evacuated from the abdominal cavity. The incisions were reapproximated using 4-0 Monocryl in an interrupted subcuticular fashion. Fascial defects were less than 8 mm in size with the exception of the left upper quadrant which was oversewn 2 using 0 Vicryl in Abel Morrell. Please note along the trocar sites, local anesthetic was placed as a field block prior to insertion of all instruments. Liquid glue was applied to the skin. Optifoam was placed along the left upper quadrant incision to decrease risk for surgical site infection from a contaminated case. At the end of the procedure needle, sponge, and instrument count had been verified correct by the microbiology lab technician. The patient was transferred to postanesthesia care unit in stable condition. Intraoperative films were shared with the patient's family who were very pleased with the level of care. Operative time 138 minutes for moderate complexity of the case
[2019-01-30] MEDS: HYDROmorphone 1 MG/ML 1 ML SYRINGE IVP ONE ×2 (15:40→15:48)
[2019-01-30] MEDS ORDERED: LACTATED RINGERS 1,000 ML IV ONE (15:58)
[2019-01-30] MEDS: PIPERACILLIN-TAZOBACTAM 3.375 GM in SODIUM CHLORIDE 0.9% 100 ML IVPB SCH (16:54)
[2019-01-30] MEDS: KETOROLAC 30 MG/ML 1 ML VIAL IVP SCH (19:13)
[2019-01-30] MEDS: HYDROcodone/APAP 5-325MG 1 EACH TAB PO PRN (21:46)
[2019-01-30] MEDS: HEPARIN SODIUM,PORCINE 5,000 UNIT/ML 1 ML VIAL SQ SCH (21:50)
[2019-01-31] MEDS: PIPERACILLIN-TAZOBACTAM 3.375 GM in SODIUM CHLORIDE 0.9% 100 ML IVPB SCH ×4 (01:01→23:12)
[2019-01-31] MEDS: KETOROLAC 30 MG/ML 1 ML VIAL IVP SCH ×3 (01:02→12:44)
[2019-01-31] MEDS: SODIUM CHLORIDE 0.9% 1,000 ML IV SCH ×2 (04:07→13:18)
[2019-01-31] MEDS: HYDROcodone/APAP 5-325MG 1 EACH TAB PO PRN ×4 (04:14→21:55)
[2019-01-31 06:40] LABS: Basophils % (A) 0 %; Eosinophils # (A) 0.1 k/uL (0-0.7); Eosinophils % (A) 1 %; HCT 34.2 % (34.0-46.0); HGB 10.8 gm/dL (11.4-16.0); Lymphocytes # (A) 1.4 k/uL (1.0-4.8); Lymphocytes % (A) 14 %; MCH 28.1 pg (25.0-35.0); MCHC 31.6 g/dL (31.0-37.0); MCV 88.8 fL (80.0-100.0); Mean Platelet Volume 7.8; Monocytes # (A) 0.5 k/uL (0-1.0); Monocytes % (A) 5 %; Neutrophils # (A) 8.1 k/uL (1.3-7.7); Neutrophils % (A) 78 %; Platelet Count 256 k/uL (150-450); RBC 3.85 m/uL (3.80-5.40); RDW 13.6 % (11.5-15.5); WBC 10.3 k/uL (3.8-10.6)
[2019-01-31 06:58] LABS: ALT 43 U/L (9-52); AST 39 U/L (14-36); Albumin 2.7 g/dL (3.5-5.0); Alkaline Phosphatase 59 U/L (38-126); Anion Gap 5 mmol/L; Blood Urea Nitrogen 6 mg/dL (7-17); Calcium 7.7 mg/dL (8.4-10.2); Carbon Dioxide 26 mmol/L (22-30); Chloride 105 mmol/L (98-107); Glucose 98 mg/dL (74-99); Magnesium 1.7 mg/dL (1.6-2.3); Sodium 136 mmol/L (137-145); Total Bilirubin 0.4 mg/dL (0.2-1.3); Total Protein 4.7 g/dL (6.3-8.2)
[2019-01-31] MEDS: HEPARIN SODIUM,PORCINE 5,000 UNIT/ML 1 ML VIAL SQ SCH ×2 (08:56→21:16)
[2019-01-31] MEDS ORDERED: PANTOPRAZOLE 40 MG/10 ML VIAL IV SCH (09:00)
--- NOTE | 2019-01-31 15:25 | P.PN ---
Subjective Progress Note Date: 01/31/19 CHIEF COMPLAINT: Acute hydrops cholecystitis HISTORY OF PRESENT ILLNESS: The patient is a 28-year-old female postop day 1 status post cholecystectomy for acute hydrops purulent cholecystitis. She is t olerating diet. No further ports of atypical chest pain. She only complains of incisional pain. ROS: No reports of nausea and vomiting. No bowel movements. No fevers or chills. No new chest pain. No productive sputum PHYSICAL EXAM: VITAL SIGNS: Reviewed CONSTITUTIONAL: Well developed and in no acute distress. EYES: Conjuctivae without sclera icterus. Extraocular movements grossly intact. HEAD, EARS, NOSE, THROAT: Moist buccal mucosa. Head is atraumatic, normocephalic. Hears conversational speech. No nasal drainage. NECK: Supple. No thyroidomegaly. RESPIRATORY: Non-labored respirations and equal bilateral excursions. CARDIOVASCULAR: Palpable 2+ radial pulses. Regular rate. Regular rhythm. ABDOMEN: Incisions clean dry and intact. Soft. No peritonitis. Minimal tenderness left upper quadrant. MUSCULOSKELETAL: No gross deformity of the lower extremities noted. No clubbi ng. No cyanosis. SKIN: Good skin turgor. Well perfused. NEUROLOGIC: Cranial nerves I through XII grossly intact. No focal or lateralizing signs. PSYCH: Appropriate affect. Alert and oriented to person, place and time. CLINCAL LABS: White blood cell count normal IMAGES: Images and findings from surgery reviewed in detail including severity of cholecystitis ASSESSMENT: 1. Acute hydrops cholecystitis with purulence PLAN: 1. Monitor LFTs for high risk cholecystectomy 2. Adjust pain medication to include ibuprofen. Narcotic rules and expectations reviewed. 3. Continue IV antibiotics with discharge home tomorrow pending resolution of LFTs. Objective - Vital Signs Vital signs: Vital Signs Temp 98.5 F 01/31/19 12:00 Pulse 83 01/31/19 12:00 Resp 18 01/31/19 12:00 BP 106/60 01/31/19 12:00 Pulse Ox 99 01/31/19 12:00 Intake & Output 01/30/19 01/31/19 01/31/19 18:59 06:59 18:59 Intake Total 1000 100 Output Total 620 Balance 380 100 Intake: IV 1000 Intake, IV Titration 100 Amount Piperacillin-Tazobactam 3 100 .375 gm In Sodium Chloride 0.9% 100 ml @ 25 mls/hr IVPB Q8HR [facility] Rx# :[id number] Output: Urine 600 Estimated Blood Loss 20 Other: # Voids 3 1 - Labs CBC & Chem 7: 01/31/19 06:29 01/31/19 06:29 Labs: Abnormal Lab Results - Last 24 Hours (Table) 01/31/19 01/31/19 Range/Units 06:29 06:29 Hgb 10.8 L (11.4-16.0) gm/dL Neutrophils # 8.1 H (1.3-7.7) k/uL Sodium 136 L (137-145) mmol/L BUN 6 L (7-17) mg/dL Calcium 7.7 L (8.4-10.2) mg/dL AST 39 H (14-36) U/L Total Protein 4.7 L (6.3-8.2) g/dL Albumin 2.7 L (3.5-5.0) g/dL Microbiology - Last 24 Hours (Table) 01/30/19 15:00 Gram Stain - Preliminary Abdomen Wound Culture - Preliminary 01/30/19 15:00 Anaerobic Culture - Preliminary Abdominal Fluid Assessment and Plan (1) state Current Visit: Yes Status: Acute Code(s): Z39.2 - ENCOUNTER FOR ROUTINE FOLLOW-UP SNOMED Code(s): 24942141 (2) Acute cholecystitis Current Visit: Yes Status: Acute Code(s): K81.0 - ACUTE CHOLECYSTITIS [facility] Code(s): 90477074
[2019-01-31] MEDS: IBUPROFEN 600 MG TAB PO SCH ×2 (16:11→21:15)
[2019-02-01] MEDS: HYDROcodone/APAP 5-325MG 1 EACH TAB PO PRN (03:26)
[2019-02-01] MEDS: SODIUM CHLORIDE 0.9% 1,000 ML IV SCH (03:29)
[2019-02-01 06:41] LABS: HCT 31.4 % (34.0-46.0); HGB 9.9 gm/dL (11.4-16.0); MCH 28.6 pg (25.0-35.0); MCHC 31.6 g/dL (31.0-37.0); MCV 90.5 fL (80.0-100.0); Mean Platelet Volume 7.1; Platelet Count 237 k/uL (150-450); RBC 3.47 m/uL (3.80-5.40); WBC 6.9 k/uL (3.8-10.6)
[2019-02-01 06:51] LABS: ALT 36 U/L (9-52); AST 25 U/L (14-36); Albumin 2.6 g/dL (3.5-5.0); Alkaline Phosphatase 59 U/L (38-126); Anion Gap 4 mmol/L; Blood Urea Nitrogen 9 mg/dL (7-17); Calcium 7.8 mg/dL (8.4-10.2); Carbon Dioxide 25 mmol/L (22-30); Chloride 109 mmol/L (98-107); Glucose 95 mg/dL (74-99); Sodium 138 mmol/L (137-145); Total Bilirubin 0.2 mg/dL (0.2-1.3); Total Protein 4.6 g/dL (6.3-8.2)
[2019-02-01 07:58] VITALS: BP 98/57; PULSE 77; RESP 16; TEMP 98.4
[2019-02-01] MEDS: PIPERACILLIN-TAZOBACTAM 3.375 GM in SODIUM CHLORIDE 0.9% 100 ML IVPB SCH (08:10)
[2019-02-01] MEDS ORDERED: PANTOPRAZOLE 40 MG TABLET PO SCH (09:00)
[2019-02-01] MEDS: HEPARIN SODIUM,PORCINE 5,000 UNIT/ML 1 ML VIAL SQ SCH (09:03)
[2019-02-01] MEDS: IBUPROFEN 600 MG TAB PO SCH (09:07)
--- NOTE | 2019-02-01 11:29 | P.DS ---
Providers Date of admission: 01/30/19 04:42 Expected date of discharge: 02/01/19 Attending physician: Scarlett Arriaga Primary care physician: Stated None - Discharge Diagnosis(es) (1) state Current Visit: Yes Status: Acute (2) Acute cholecystitis Current Visit: Yes Status: Acute Hospital Course: POSTOPERATIVE DIAGNOSES: 1 Hydrops purulent acute cholecystitis with cystic duct obstruction from gallstones 2. Atypical chest pain 3. Acute cholecystitis with cystic duct obstruction 4. Obesity due to excess calories, BMI 33.1 5. Personal history of MRSA infection 6. Generalized anxiety disorder 7. Depressive disorder, chronic 8. Pericholecystic adhesions CHIEF COMPLAINT: Acute hydrops cholecystitis HISTORY OF PRESENT ILLNESS: The patient is a 28-year-old female postop day 2 status post cholecystectomy for acute hydrops purulent cholecystitis, 01/30/2019. Her incisional pain is well controlled with NSAIDs. No obvious signs of bleeding. She is tolerating diet. ROS: No reports of nausea and vomiting. No bowel movements. No fevers or chills. No new chest pain. No productive sputum PHYSICAL EXAM: VITAL SIGNS: Reviewed CONSTITUTIONAL: Well developed and in no acute distress. EYES: Conjuctivae without sclera icterus. Extraocular movements grossly intact. HEAD, EARS, NOSE, THROAT: Moist buccal mucosa. Head is atraumatic, normocephalic. Hears conversational speech. No nasal drainage. NECK: Supple. No thyroidomegaly. RESPIRATORY: Non-labored respirations and equal bilateral excursions. CARDIOVASCULAR: Palpable 2+ radial pulses. Regular rate. Regular rhythm. ABDOMEN: Dressing is clean dry and intact. Optifoam dressing discontinued from left upper quadrant incision without signs of cellulitis or infection. No peritonitis. MUSCULOSKELETAL: No gross deformity of the lower extremities noted. No clubbing. No cyanosis. SKIN: Good skin turgor. Well perfused. NEUROLOGIC: Cranial nerves I through XII grossly intact. No focal or lateralizing signs. PSYCH: Appropriate affect. Alert and oriented to person, place and time. CLINCAL LABS: White blood cell count normal. LFTs normal ASSESSMENT: 1. Acute hydrops cholecystitis with purulence 2. Postoperative pain PLAN: 1. Her pain is well-controlled and LFTs is normalized. Patient clinic was stable for discharge. 2. Follow-up in the office in 2 weeks. 3. Diet as tolerated Vital Signs Temp 98.4 F 02/01/19 07:53 Pulse 77 02/01/19 07:53 Resp 16 02/01/19 07:53 BP 98/57 02/01/19 07:53 Pulse Ox 98 02/01/19 07:53 Intake & Output 01/31/19 02/01/19 02/01/19 18:59 06:59 18:59 Other: # Voids 3 Laboratory Last Values WBC 6.9 k/uL (3.8-10.6) 02/01/19 06:23 RBC 3.47 m/uL (3.80-5.40) L 02/01/19 06:23 Hgb 9.9 gm/dL (11.4-16.0) L 02/01/19 06:23 Hct 31.4 % (34.0-46.0) L 02/01/19 06:23 MCV 90.5 fL (80.0-100.0) 02/01/19 06:23 MCH 28.6 pg (25.0-35.0) 02/01/19 06:23 MCHC 31.6 g/dL (31.0-37.0) 02/01/19 06:23 RDW 14.0 % (11.5-15.5) 02/01/19 06:23 Plt Count 237 k/uL (150-450) 02/01/19 06:23 Neutrophils % 78 % 01/31/19 06:29 Lymphocytes % 14 % 01/31/19 06:29 Monocytes % 5 % 01/31/19 06:29 Eosinophils % 1 % 01/31/19 06:29 Basophils % 0 % 01/31/19 06:29 Neutrophils # 8.1 k/uL (1.3-7.7) H 01/31/19 06:29 Lymphocytes # 1.4 k/uL (1.0-4.8) 01/31/19 06:29 Monocytes # 0.5 k/uL (0-1.0) 01/31/19 06:29 Eosinophils # 0.1 k/uL (0-0.7) 01/31/19 06:29 Basophils # 0.0 k/uL (0-0.2) 01/31/19 06:29 D-Dimer 1.38 mg/L FEU (<0.60) H 01/30/19 00:15 Sodium 138 mmol/L (137-145) 02/01/19 06:23 Potassium 4.0 mmol/L (3.5-5.1) 02/01/19 06:23 Chloride 109 mmol/L (98-107) H 02/01/19 06:23 Carbon Dioxide 25 mmol/L (22-30) 02/01/19 06:23 Anion Gap 4 mmol/L 02/01/19 06:23 BUN 9 mg/dL (7-17) 02/01/19 06:23 Creatinine 0.63 mg/dL (0.52-1.04) 02/01/19 06:23 Est GFR (CKD-EPI)AfAm >90 (>60 ml/min/1.73 sqM) 02/01/19 06:23 Est GFR (CKD-EPI)NonAf >90 (>60 ml/min/1.73 sqM) 02/01/19 06:23 Glucose 95 mg/dL (74-99) 02/01/19 06:23 Calcium 7.8 mg/dL (8.4-10.2) L 02/01/19 06:23 Magnesium 1.7 mg/dL (1.6-2.3) 01/31/19 06:29 Total Bilirubin 0.2 mg/dL (0.2-1.3) 02/01/19 06:23 AST 25 U/L (14-36) 02/01/19 06:23 ALT 36 U/L (9-52) 02/01/19 06:23 Alkaline Phosphatase 59 U/L (38-126) 02/01/19 06:23 Troponin I <0.012 ng/mL (0.000-0.034) 01/30/19 00:15 Total Protein 4.6 g/dL (6.3-8.2) L 02/01/19 06:23 Albumin 2.6 g/dL (3.5-5.0) L 02/01/19 06:23 Lipase 47 U/L (23-300) 01/30/19 00:15 Urine HCG, Qual Not Detected (Not Detectd) 01/30/19 10:16 Pertinent Studies: CT of the abdomen and pelvis demonstrating acute cholecystitis. Ultrasound of the gallbladder also demonstrating acute cholecystitis Procedures: OPERATION: 1. Robotic-assisted da Annika Xi laparoscopic laparoscopic lysis of adhesions over 45 minutes 2. Robotic-assisted da Annika Xi laparoscopic cholecystectomy, multiport with FIREFLY ESTIMATED BLOOD LOSS: 30 mL. SPECIMENS REMOVED: Gallbladder and peritoneal fluid COMPLICATIONS: None. OPERATIVE FINDINGS: 1. Acute cholecystitis with wandy purulence from gallbladder and hydropic with clear bile 2. Contaminated case with wandy pus from gallbladder with anaerobic and aerobic cultures obtained Patient Condition at Discharge: Stable Plan - Discharge Summary New Discharge Prescriptions: New Ibuprofen [Motrin] 600 mg PO Q8HR PRN #30 tab PRN Reason: Pain HYDROcodone/APAP 5-325MG [[place] 5-325] 1 tab PO Q6HR PRN 3 Days #10 tab PRN Reason: Pain Discharge Medication List HYDROcodone/APAP 5-325MG [[place] 5-325] 1 tab PO Q6HR PRN 3 Days #10 tab 02/01/19 [Rx] Ibuprofen [Motrin] 600 mg PO Q8HR PRN #30 tab 02/01/19 [Rx] Follow up Appointment(s)/Referral(s): None,Stated [Primary Care Provider] - 1-2 days Scarlett Arriaga MD [STAFF PHYSICIAN] - 02/10/19 Patient Instructions/Handouts: Laparoscopic Cholecystectomy (DC), Low Fat Diet (DC) Activity/Diet/Wound Care/Special Instructions: Diet as tolerated. Do not lift over 10 pounds in 1 week to prevent hernias. No bathtub soaks. May take Tylenol for pain. Discharge Disposition: HOME SELF-CARE
== END 2019-02-01 13:30 | disposition home or self-care (01) | DRG 419 ==
LOC: EC 23:26 → 6PED 01-30 04:42 → 4FBP 01-30 14:43
PROVIDERS: ADMIT Surgery Plastic and Reconstructive Surgery; ATTEND Surgery Plastic and Reconstructive Surgery
PROC: 8E0W4CZ Robotic Assisted Procedure of Trunk Region, Percutaneous Endoscopic Approach (ICD-10-PCS; 2019-01-30)
PROC: 0FT44ZZ Resection of Gallbladder, Percutaneous Endoscopic Approach (ICD-10-PCS; principal; 2019-01-30 08:35)
DX: K80.13 Calculus of gallbladder with acute and chronic cholecystitis with obstruction (principal); E66.09 Other obesity due to excess calories; F41.1 Generalized anxiety disorder; F32.9 Major depressive disorder, single episode, unspecified; I45.10 Unspecified right bundle-branch block; R07.89 Other chest pain; Z68.33 Body mass index [BMI] 33.0-33.9, adult; Z87.891 Personal history of nicotine dependence; Z86.14 Personal history of Methicillin resistant Staphylococcus aureus infection; Z83.79 Family history of other diseases of the digestive system; Z82.49 Family history of ischemic heart disease and other diseases of the circulatory system
CPT/HCPCS: 36415; 71046; 71275; 76705; 80053; 81025; 83690; 83735; 84484; 85025; 85027; 85379; 87070; 87075; 87205; 88304; 93005; 96365; 96375; 99285

== ENCOUNTER 2019-11-30 13:44 | Emergency (ER) | payer OTHER ==
[2019-11-30 13:57] VITALS: BP 116/74; PULSE 74; TEMP 98
--- NOTE | 2019-11-30 14:43 | XR ---
EXAMINATION TYPE: XR tibia fibula RT DATE OF EXAM: 11/30/2019 CLINICAL HISTORY: pain TECHNIQUE: AP and lateral images of the right tibia and fibula are obtained. COMPARISON: None. FINDINGS: There is no acute fracture/dislocation evident. The joint spaces appear within normal gil its. The overlying soft tissue appears unremarkable. IMPRESSION: There is no acute fracture or dislocation seen. ICD 10 NO FRACTURE, INITIAL EVALUATION
[2019-11-30 15:14] VITALS: RESP 20
--- NOTE | 2019-11-30 15:14 | ED ---
Skin/Abscess/FB HPI - General Chief complaint: Skin/Abscess/Foreign Body Stated complaint: lumps on legs Time Seen by Provider: 11/30/19 14:05 Source: patient, RN notes reviewed Mode of arrival: ambulatory Limitations: no limitations - History of Present Illness Initial comments: This a 24-year-old female presents emergency from chief complaint of swollen lumps on her lower legs. Patient states they have been on and off for the last one year. She states her to his primary just below her right knee and her distal left leg. Patient states that they're red, itchy at times in which she causes excoriations. Patient states it's very painful to touch in the right leg. Denies any trauma no fevers chills denies any significant past medical history associate with this. She states that she started when she was discussed this with her POLE CUTTER told her she probably just wants her leg. Patient denies any history of immune disorders. Denies any other areas of rash. - Related Data Previous Rx's Medication Instructions Recorded HYDROcodone/APAP 5-325MG [[place] 1 tab PO Q6HR PRN 3 Days #10 tab 02/01/19 5-325] Ibuprofen [Motrin] 600 mg PO Q8HR PRN #30 tab 02/01/19 Triamcinolone 0.1% Cream [Kenalog 1 applicatio TOPICAL BID #30 gram 11/30/19 0.1% Cream] predniSONE 50 mg PO DAILY #5 tab 11/30/19 Allergies Allergy/AdvReac Type Severity Reaction Status Date / Time No Known Allergies Allergy Verified 11/30/19 13:55 Review of Systems ROS Statement: Those systems with pertinent positive or pertinent negative responses have been documented in the HPI. ROS Other: All systems not noted in ROS Statement are negative. Past Medical History Past Medical History: No Reported History History of Any Multi-Drug Resistant Organisms: MRSA Date of last positivie culture/infection: 2013/buttocks MDRO Source:: MRSA Past Surgical History: Cholecystectomy Past Anesthesia/Blood Transfusion Reactions: No Reported Reaction Past Psychological History: Anxiety, Depression Smoking Status: Never smoker Past Alcohol Use History: None Reported Past Drug Use History: Marijuana - Past Family History Mother Family Medical History: Hypertension General Exam Limitations: no limitations General appearance: alert, in no apparent distress Head exam: Present: atraumatic, normocephalic, normal inspection Neck exam: Present: normal inspection, full ROM. Absent: tenderness, meningismus, lymphadenopathy Respiratory exam: Present: normal lung sounds bilaterally. Absent: respiratory distress, wheezes, rales, rhonchi, stridor Cardiovascular Exam: Present: regular rate, normal rhythm, normal heart sounds. Absent: systolic murmur, diastolic murmur, rubs, gallop, clicks Extremities exam: Present: other (Right lower extremity just inferior to the right knee there is moderate swelling, firmness to soft tissue area. Patient leg is neurovascularly intact full range of motion 2 weeks. Left lower leg just proximal to the ankle there is a small area of erythema that has some excoriations and minimally tender.) Course Vital Signs 11/30/19 11/30/19 13:52 15:00 Temperature 98.0 F Pulse Rate 74 Respiratory 16 20 Rate Blood Pressure 116/74 O2 Sat by Pulse 99 Oximetry Medical Decision Making - Medical Decision Making X-rays negative for acute bony abnormality. Patient symptoms related to some sort dermatological versus rheumatoid type symptoms. Patient is to intercourse steroids, topical steroids will follow-up with rheumatology in dermatology. Return parameters were discussed. Disposition Clinical Impression: Dermatitis Disposition: HOME SELF-CARE Condition: Stable Instructions (If sedation given, give patient instructions): Acute Rash (ED) Additional Instructions: Please return to the Emergency Department if symptoms worsen or any other concerns. Prescriptions: Triamcinolone 0.1% Cream [Kenalog 0.1% Cream] 1 applicatio TOPICAL BID #30 gram predniSONE 50 mg PO DAILY #5 tab Is patient prescribed a controlled substance at d/c from ED?: No Referrals: Darrell Wright MD [Primary Care Provider] - 1-2 days Rajni Wolfe MD [STAFF PHYSICIAN] - 1-2 days Carol Dickson MD [STAFF PHYSICIAN] - 1-2 days Time of Disposition: 15:43
== END 2019-11-30 16:06 | disposition home or self-care (01) ==
LOC: EC 13:44
DX: L30.9 Dermatitis, unspecified (principal); M79.604 Pain in right leg; Z86.14 Personal history of Methicillin resistant Staphylococcus aureus infection
CPT/HCPCS: 99283

== ENCOUNTER 2020-02-05 13:54 | Emergency (ER) | payer OTHER ==
[2020-02-05 14:16] VITALS: BP 115/69; PULSE 83; RESP 18; TEMP 98.3
--- NOTE | 2020-02-05 15:04 | ED ---
Skin/Abscess/FB HPI - General Chief complaint: Skin/Abscess/Foreign Body Stated complaint: Rash Time Seen by Provider: 02/05/20 14:18 Source: patient Mode of arrival: ambulatory Limitations: no limitations - History of Present Illness Initial comments: Patient is a 29-year-old female presenting to the emergency Department with complaints of an abscess on her left upper thigh 3 days. Patient is currently 12.5 weeks as well. She sees Dr. Arboleda. Patient had regular follow-up appointment [address] Arboleda started her on Keflex twice a day for 7 days. Patient comes in today because the abscess opened yesterday and she feels like it was getting worse. She denies any fever, chills, vomiting. Patient states she has had regular nausea throughout this that has remained the same. She denies any abdominal pain. She has no other complaints at this time. Upon arrival to the ER, her vital signs are stable. - Related Data Previous Rx's Medication Instructions Recorded HYDROcodone/APAP 5-325MG [[place] 1 tab PO Q6HR PRN 3 Days #10 tab 02/01/19 5-325] Ibuprofen [Motrin] 600 mg PO Q8HR PRN #30 tab 02/01/19 Triamcinolone 0.1% Cream [Kenalog 1 applicatio TOPICAL BID #30 gram 11/30/19 0.1% Cream] predniSONE 50 mg PO DAILY #5 tab 11/30/19 Cephalexin [Keflex] 500 mg PO Q6HR #7 cap 02/05/20 Allergies Allergy/AdvReac Type Severity Reaction Status Date / Time No Known Allergies Allergy Verified 02/05/20 14:16 Review of Systems ROS Statement: Those systems with pertinent positive or pertinent negative responses have been documented in the HPI. ROS Other: All systems not noted in ROS Statement are negative. Past Medical History Past Medical History: No Reported History History of Any Multi-Drug Resistant Organisms: MRSA Date of last positivie culture/infection: 2013/buttocks MDRO Source:: MRSA Past Surgical History: Cholecystectomy Past Anesthesia/Blood Transfusion Reactions: No Reported Reaction Past Psychological History: Anxiety, Depression Smoking Status: Never smoker Past Alcohol Use History: None Reported Past Drug Use History: None Reported - Past Family History Mother Family Medical History: Hypertension General Exam - General Exam Comments Initial Comments: GENERAL: Well-appearing, well-nourished and in no acute distress. HEAD: Atraumatic, normocephalic. EYES: Pupils equal round and reactive to light, extraocular movements intact, sclera anicteric, conjunctiva are normal. ENT: Moist mucous membranes. NECK: Normal range of motion, supple without lymphadenopathy or JVD. LUNGS: Breath sounds clear to auscultation bilaterally and equal. No wheezes rales or rhonchi. HEART: Regular rate and rhythm without murmurs, rubs or gallops. ABDOMEN: Soft, nontender, normoactive bowel sounds. No guarding, no rebound. No masses appreciated. : Deferred EXTREMITIES: Normal range of motion, no pitting or edema. No clubbing or cyanosis. NEUROLOGICAL: Normal speech, normal gait. PSYCH: Normal mood, normal affect. SKIN: Warm, Dry, normal turgor. Patient has a small 1 cm x 1 cm, open abscess on the upper left thigh, near the groin. There is some mild surrounding erythema, no pain with palpation of the surrounding area. Limitations: no limitations Course Vital Signs 02/05/20 14:11 Temperature 98.3 F Pulse Rate 83 Respiratory 18 Rate Blood Pressure 115/69 O2 Sat by Pulse 100 Oximetry Medical Decision Making - Medical Decision Making Patient is a 29-year-old female here for a abscess of the left upper thigh 3 days. No fevers or vomiting. She is currently 12 and half weeks . Normal thus far. Patient is already prescribed Keflex for 7 days. I will increase her dosage to 4 times a day for 7 days. She will continue with warm compresses to the area. She'll follow-up with her PCP. Patient stable for discharge and she is in agreement with this plan of care. Strict return parameters were discussed with the patient and she verbalized understanding. Case discussed with Dr. Giron. Disposition Clinical Impression: Abscess of left groin Disposition: HOME SELF-CARE Condition: Stable Instructions (If sedation given, give patient instructions): Abscess (ED) Additional Instructions: Please return to the Emergency Department if symptoms worsen or any other concerns. Take antibiotic as prescribed. Use warm compresses to the area. Keep area clean and dry. Keep covered while wearing tight clothes. Prescriptions: Cephalexin [Keflex] 500 mg PO Q6HR #7 cap Is patient prescribed a controlled substance at d/c from ED?: No Referrals: Darrell Wright MD [Primary Care Provider] - 1-2 days
== END 2020-02-05 15:06 | disposition home or self-care (01) ==
LOC: EC 13:54
DX: O99.711 Diseases of the skin and subcutaneous tissue complicating pregnancy, first trimester (principal); L02.214 Cutaneous abscess of groin; Z3A.12 12 weeks gestation of pregnancy
CPT/HCPCS: 99282

== ENCOUNTER 2020-08-08 06:00 | Inpatient (IN) | payer OTHER ==
[2020-08-08] MEDS ORDERED: TERBUTALINE 1 MG/ML VIAL SQ PRN (06:55)
[2020-08-08] MEDS ORDERED: LIDOCAINE 0.5% (PF) 5 MG/ML (50 ML SDV) SQ PRN (06:55)
[2020-08-08] MEDS ORDERED: CARBOPROST TROMETHAMINE 250 MCG/ML 1 ML AMP IM PRN (06:55)
[2020-08-08] MEDS ORDERED: METHYLERGONOVINE 0.2 MG/ML 1 ML AMP IM PRN (06:55)
[2020-08-08] MEDS ORDERED: OXYTOCIN 10 UNIT/ML 1 ML VIAL IM PRN (06:55)
[2020-08-08] MEDS ORDERED: OXYTOCIN 30 UNITS/500 ML NS 30 UNIT in SALINE 1 500ML.BAG IV SCH (07:00)
[2020-08-08 07:03] LABS: Basophils # (A) 0.1 k/uL (0-0.2); Basophils % (A) 1 %; Eosinophils # (A) 0.2 k/uL (0-0.7); Eosinophils % (A) 1 %; HCT 36.6 % (34.0-46.0); Lymphocytes # (A) 1.9 k/uL (1.0-4.8); Lymphocytes % (A) 18 %; MCH 29.2 pg (25.0-35.0); MCHC 32.9 g/dL (31.0-37.0); MCV 88.7 fL (80.0-100.0); Mean Platelet Volume 8.1; Monocytes # (A) 0.5 k/uL (0-1.0); Monocytes % (A) 5 %; Neutrophils # (A) 7.6 k/uL (1.3-7.7); Neutrophils % (A) 73 %; Platelet Count 287 k/uL (150-450); RBC 4.12 m/uL (3.80-5.40); RDW 13.9 % (11.5-15.5); WBC 10.5 k/uL (3.8-10.6)
[2020-08-08] MEDS: LACTATED RINGERS 1,000 ML IV SCH ×2 (07:28→10:39)
[2020-08-08] MEDS ORDERED: BUTORPHANOL 1 MG/ML 1 ML VIAL IV PRN (08:53)
--- NOTE | 2020-08-08 09:04 | P.HPOB ---
History of Present Illness H&P Date: 08/08/20 Chief Complaint: 39-2/7 weeks, elective induction, LGA The patient is a 30-year-old 4 para 3003 admitted at 39-2/7 weeks as established by 9 week ultrasound. She is admitted for elective induction of labor secondary to a fetus in the category of large for gestational age with measurement well over the 90th percentile at approximately 35 weeks. Her has otherwise been entirely uncomplicated and group B strep status is negative. On labor and delivery, all signs are reassuring with a category 1 heart rate tracing. Obstetrical history: 4 para 3003 with 3 term vaginal deliveries without complications. Current statistics are listed in history of present illness. EDC of 08/13/2020 was established by 9 week ultrasound. Laboratory workup demonstrates a blood type of A+ with a negative antibody screen. Rubella status is immune. The remainder of the laboratory workup was within normal limits. One hour Glucola was normal and group B strep status is negative. Gynecologic history: Unremarkable with no history of any infections to include STDs. Review of Systems In view systems is confined to history of present illness. Past Medical History Past Medical History: No Reported History History of Any Multi-Drug Resistant Organisms: None Reported, MRSA Date of last positivie culture/infection: 2013/buttocks MDRO Source:: MRSA Past Surgical History: Cholecystectomy Past Anesthesia/Blood Transfusion Reactions: No Reported Reaction Past Psychological History: Anxiety, Depression Smoking Status: Former smoker Past Alcohol Use History: None Reported Past Drug Use History: Marijuana Additional Drug Use History / Comment(s): daily - Past Family History Mother Family Medical History: Hypertension Medications and Allergies Home Medications Medication Instructions Recorded Confirmed Type No Known Home Medications 08/08/20 08/08/20 History Allergies Allergy/AdvReac Type Severity Reaction Status Date / Time No Known Allergies Allergy Verified 08/08/20 06:50 Exam Vital Signs Temp Pulse Resp BP Pulse Ox 08/08/20 06:51 96.8 F L 94 18 130/69 98 Intake and Output 08/07/20 08/08/20 08/08/20 22:59 06:59 14:59 Other: Weight 107.048 kg In general, this is a well-developed, well-nourished white female in no acute distress. Her heart has a regular rhythm and rate without murmur. Her lungs are clear to auscultation bilaterally in all fajardo. Her abdomen is gravid, nondistended, has normal active bowel sounds, soft, nontender, and without any palpable masses aside from uterine fundus. Her extremities are without any cyanosis, clubbing, or edema and are nontender to palpation bilaterally. Digital for cervical examination demonstrates her surgery approximately 27 m dilated, 50-60% effaced, with the vertex in presentation at -3 station. Artificial rupture of membranes is carried out demonstrating clear fluid. Results Result Diagrams: 08/08/20 06:50 Assessment and Plan (1) Term Current Visit: Yes Status: Acute Code(s): Z34.80 - ENCOUNTER FOR SUPRVSN OF NORMAL , UNSP TRIMESTER SNOMED Code(s): 36595286 (2) Large for gestational age fetus Current Visit: Yes Status: Acute Code(s): AIX2648 - SNOMED Code(s): 721986282 Plan: The patient is admitted for elective induction of labor. She understands the potential risk for a longer course of labor as well as the unlikely but possible scenario of an unintended section. She has additionally expressed the desire for tubal ligation should that become necessary. She has had Pitocin augmentation started and undergone artificial rupture of membranes. She will continue to have close maternal and surveillance and expectant management will be practiced. She is a good candidate for either IV or epidural analgesia, whichever she may choose.
[2020-08-08] MEDS ORDERED: ROPIVACAINE 100 MG, fentaNYL (PF) 200 MCG in SODIUM CHLORIDE 0.9% 76 ML EPIDURAL ONE (11:45)
[2020-08-08] MEDS ORDERED: diphenhydrAMINE 25 MG CAP PO PRN (15:24)
[2020-08-08] MEDS ORDERED: diphenhydrAMINE 50 MG CAP PO PRN (15:24)
[2020-08-08] MEDS ORDERED: diphenhydrAMINE 50 MG/ML 1 ML VIAL IVP PRN ×2 (15:24)
[2020-08-08] MEDS ORDERED: BENZOCAINE/MENTHOL SPRAY 1 GM/SPRAY AEROSOL TOPICAL PRN (15:24)
[2020-08-08] MEDS ORDERED: LANOLIN CREAM 5 GM TUBE TOPICAL PRN (15:24)
[2020-08-08] MEDS ORDERED: HYDROcodone/APAP 5-325MG 1 EACH TAB PO PRN (15:24)
[2020-08-08] MEDS ORDERED: ZOLPIDEM 5 MG TAB PO PRN (15:24)
[2020-08-08] MEDS ORDERED: HYDROcodone/APAP 7.5-325MG 1 EACH TAB PO PRN (15:24)
[2020-08-08] MEDS ORDERED: HYDROCORTISONE 2.5% RECTAL CREAM 30 GM TUBE RECTAL PRN (15:24)
[2020-08-08] MEDS ORDERED: SIMETHICONE 80 MG CHEWABLE PO PRN (15:24)
--- NOTE | 2020-08-08 15:28 | P.PROBDLV ---
Vaginal Delivery Note - . Vaginal Delivery Note: This is a 40-year-old 4 para 3003 admitted at 39-2/7 weeks by good dating parameters. She is admitted for elective induction of labor with a suspected large for gestational age fetus with growth at greater than the 90th percentile at approximately 35 weeks. Her has been otherwise uncomplicated and group B strep status is negative. On labor and delivery, all signs reassuring. She had Pitocin augmentation started and then underwent artificial rupture of membranes for clear fluid. She had an epidural catheter placed around the onset of the active phase of labor. She made fairly rapid progress throughout the day to complete and then pushed over the course of approximately 10-15 minutes to a normal spontaneous vaginal delivery of a viable 9 lbs. 10 oz. baby boy with Apgars of 9 at 1 minute and 9 at 5 minutes delivered in the direct occiput anterior position. The placenta was delivered spontaneously, intact, and grossly normal with a grossly normal, centrally inserted three-vessel cord. There were no lacerations of the perineum, vagina, or cervix. Estimated blood loss for the entire case was approximately 100 mL. There were no complications. Both mother and are resting comfortably in recovery.
[2020-08-08] MEDS ORDERED: OXYTOCIN 20 UNITS/1000 ML NS 1,000 ML IV SCH (15:30)
[2020-08-08] MEDS: SENNOSIDES-DOCUSATE SODIUM 1 EACH TAB PO SCH (19:42)
[2020-08-08] MEDS: IBUPROFEN 600 MG TAB PO PRN (19:42)
[2020-08-09] MEDS: ACETAMINOPHEN TAB 325 MG TAB PO PRN ×2 (00:18→08:32)
[2020-08-09] MEDS: IBUPROFEN 600 MG TAB PO PRN ×2 (04:56→11:24)
[2020-08-09 06:53] LABS: Basophils % (A) 0 %; Eosinophils # (A) 0.1 k/uL (0-0.7); Eosinophils % (A) 1 %; HCT 35.1 % (34.0-46.0); HGB 11.4 gm/dL (11.4-16.0); Lymphocytes # (A) 1.8 k/uL (1.0-4.8); Lymphocytes % (A) 18 %; MCH 29.2 pg (25.0-35.0); MCHC 32.5 g/dL (31.0-37.0); MCV 89.9 fL (80.0-100.0); Monocytes # (A) 0.6 k/uL (0-1.0); Monocytes % (A) 6 %; Neutrophils # (A) 7.4 k/uL (1.3-7.7); Neutrophils % (A) 73 %; Platelet Count 250 k/uL (150-450); RBC 3.91 m/uL (3.80-5.40); RDW 13.9 % (11.5-15.5); WBC 10.1 k/uL (3.8-10.6)
[2020-08-09] MEDS: SENNOSIDES-DOCUSATE SODIUM 1 EACH TAB PO SCH (08:31)
--- NOTE | 2020-08-09 10:08 | P.DS ---
Providers Date of admission: 08/08/20 06:33 Expected date of discharge: 08/09/20 Attending physician: Rikki Arboleda Primary care physician: Darrell Wright - Discharge Diagnosis(es) (1) Term Current Visit: Yes Status: Acute (2) Large for gestational age fetus Current Visit: Yes Status: Acute (3) Normal spontaneous vaginal delivery Current Visit: Yes Status: Acute Hospital Course: The patient is a 30-year-old 4 para 3003 admitted at 39-2/7 weeks by good dating parameters perches admitted for an elective induction of labor secondary to suspected large for gestational age fetus. Her was otherwise uncomplicated and group B strep status is negative. On labor and delivery, all signs reassuring. She had Pitocin augmentation started and underwent artificial rupture of membranes demonstrating clear fluid. She made progress to the active phase of labor at which time an epidural catheter was placed for analgesia. She then made fairly rapid progress through the active phase of labor to complete and pushed to a normal spontaneous vaginal delivery of a viable 9 lbs. 10 oz. baby boy with Apgars of 9 at 1 minute and 9 at 5 minutes. Her course was unremarkable vital signs remaining stable and her temperature was afebrile throughout. She was deemed stable for discharge on day #1 and was discharged home to follow-up in the office in 6 weeks' time routinely. Discharge instructions included calling for any significantly increased bleeding or foul-smelling lochia, significantly increased fever abdominal pain, perineal complaints, breast complaints, or a nything also concerned her. She is additionally instructed to have nothing in the vagina for at least 6 weeks time to include intercourse. She understood her instructions and agrees follow up as noted above. Discharge medications included continued vitamins as she has opted to breast-feed. She was otherwise to use [id number] analgesic pain medications as needed. Maternal blood type is A+ and rubella status is immune. Procedures: #1. Pitocin induction #2. Artificial rupture of membranes #3. Epidural analgesia 4. Normal spontaneous vaginal delivery Patient Condition at Discharge: Stable Plan - Discharge Summary New Discharge Prescriptions: No Action No Known Home Medications Discharge Medication List No Known Home Medications 08/08/20 [History] Follow up Appointment(s)/Referral(s): Rikki Arboleda MD [STAFF PHYSICIAN] - 6 Weeks Discharge Disposition: HOME SELF-CARE
[2020-08-09 16:54] VITALS: BP 117/68; PULSE 85; RESP 16; TEMP 99
== END 2020-08-09 16:56 | disposition home or self-care (01) | DRG 807 ==
LOC: 4FBP 06:33
PROVIDERS: ADMIT Obstetrics & Gynecology; ATTEND Obstetrics & Gynecology
PROC: 10E0XZZ Delivery of Products of Conception, External Approach (ICD-10-PCS; principal; 2020-08-08)
PROC: 3E0R3BZ Introduction of Anesthetic Agent into Spinal Canal, Percutaneous Approach (ICD-10-PCS; principal; 2020-08-08)
PROC: 10907ZC Drainage of Amniotic Fluid, Therapeutic from Products of Conception, Via Natural or Artificial Opening (ICD-10-PCS; principal; 2020-08-08)
PROC: 00HU33Z Insertion of Infusion Device into Spinal Canal, Percutaneous Approach (ICD-10-PCS; principal; 2020-08-08)
DX: O36.63X0 Maternal care for excessive fetal growth, third trimester, not applicable or unspecified (principal); Z37.0 Single live birth; O99.344 Other mental disorders complicating childbirth; F41.9 Anxiety disorder, unspecified; F32.9 Major depressive disorder, single episode, unspecified; Z3A.39 39 weeks gestation of pregnancy; Z82.49 Family history of ischemic heart disease and other diseases of the circulatory system; Z87.891 Personal history of nicotine dependence
CPT/HCPCS: 85025; 86850; 86900; 86901

== ENCOUNTER 2020-11-14 09:55 | Day surgery (SDC) | payer OTHER ==
--- NOTE | 2020-11-10 14:45 | HP ---
HISTORY AND PHYSICAL DATE OF SURGERY: 11/14/2020. HISTORY OF PRESENT ILLNESS: The patient is a 30-year-old 4, para 4-0-0-4, who had a relatively recent normal spontaneous vaginal delivery and has expressed desire for permanent sterilization. She is aware of other long-term and reversible methods of contraception but has declined those in favor of permanent sterilization. PAST MEDICAL HISTORY: None. PAST SURGICAL HISTORY: Significant for laparoscopic cholecystectomy in 2019 without any anesthetic concerns. OBSTETRICAL HISTORY: 4, para 4-0-0-4 with four term vaginal deliveries without complications. GYNECOLOGIC HISTORY: Unremarkable with no recent history of any infections to include STDs. FAMILY HISTORY: Noncontributory. SOCIAL HISTORY: The patient is single but does have a significant other. She is a current nonsmoker, but does have history of smoking. She reports occasional alcohol. No other social concerns. She does occasionally use marijuana. REVIEW OF SYSTEMS: Confined to history of present illness. PHYSICAL EXAMINATION: Vital signs are stable and the patient is afebrile. In general, this is a well- developed, well-nourished white female in no acute distress. Her heart has regular rhythm and rate without murmur. Her lungs are clear to auscultation bilaterally in all fajardo. Her abdomen is nondistended, has normoactive bowel sounds, soft, nontender, without any palpable masses, hepatosplenomegaly, or hernias. Her extremities are without any cyanosis, clubbing, or edema and are nontender to palpation bilaterally. Bimanual pelvic examination demonstrates normal external genitalia and BUS with normal vaginal mucosa and cervix. There is no cervical motion tenderness. Uterus is 5 weeks in size, anteverted, mobile, nontender, and normal in shape. The adnexa are normal and nontender without mass bilaterally. ASSESSMENT AND PLAN: Multiparity, undesired fertility: We have discussed alternative long-term reversible methods at length and she has declined that in favor of laparoscopic bilateral tubal occlusion with Filshie clips. The risks and complications were discussed at length including risk for bleeding, bleeding requiring transfusion, infection, and injury to local structures to specifically include the bowel, bladder, and ureters. She has understood all these risks and has agreed to proceed. She again is very aware of the permanent nature of the procedure. MMODL / IJN: [id number] /
[2020-11-11 09:48] VITALS: BMI 31.3
[~2020-11-14 09:55] MED LIST: Pre Op ABX Message 1 EACH MISC MISCELLANE ONE
[2020-11-14] MEDS ORDERED: MIDAZOLAM 2 MG/2 ML VIAL IV PRN (10:04)
[2020-11-14] MEDS ORDERED: DEXAMETHASONE SOD PHOSPHATE 4 MG/ML 1 ML VIAL IV ONE (10:04)
[2020-11-14] MEDS ORDERED: LIDOCAINE 1% (10MG/ML) FOR IV START INTRADERMA PRN (10:04)
[2020-11-14] MEDS ORDERED: LACTATED RINGERS 1,000 ML IV SCH ×2 (10:04→12:00)
[2020-11-14] MEDS ORDERED: ONDANSETRON 4 MG/2 ML VIAL IVP ONE (10:04)
[2020-11-14 10:27] VITALS: RESP 16
[2020-11-14 10:48] LABS: Basophils % (A) 0 %; Eosinophils # (A) 0.2 k/uL (0-0.7); Eosinophils % (A) 2 %; HCT 38.7 % (34.0-46.0); HGB 13.2 gm/dL (11.4-16.0); Lymphocytes # (A) 1.7 k/uL (1.0-4.8); Lymphocytes % (A) 21 %; MCH 30.2 pg (25.0-35.0); MCHC 34.1 g/dL (31.0-37.0); MCV 88.4 fL (80.0-100.0); Mean Platelet Volume 7.3; Monocytes # (A) 0.4 k/uL (0-1.0); Monocytes % (A) 5 %; Neutrophils # (A) 5.5 k/uL (1.3-7.7); Neutrophils % (A) 70 %; Platelet Count 279 k/uL (150-450); RBC 4.38 m/uL (3.80-5.40); RDW 14.5 % (11.5-15.5); WBC 7.8 k/uL (3.8-10.6)
[2020-11-14] MEDS ORDERED: KETOROLAC 15 MG/ML 1 ML VIAL ONE (11:06)
[2020-11-14] MEDS ORDERED: LIDOCAINE 1% INJ 10MG/ML (20 ML MDV) ONE (11:06)
[2020-11-14] MEDS ORDERED: HYDROmorphone (PF) 1 MG/ML ONE (11:06)
[2020-11-14] MEDS ORDERED: MIDAZOLAM 2 MG/2 ML VIAL ONE (11:06)
[2020-11-14] MEDS ORDERED: PROPOFOL 10 MG/ML 20 ML VIAL IV ONE (11:06)
[2020-11-14] MEDS ORDERED: SUCCINYLCHOLINE CHLORIDE 100 MG/5 ML SYR IV ONE (11:06)
[2020-11-14] MEDS ORDERED: fentaNYL (PF) 50 MCG/ML 2 ML AMP ONE (11:06)
[2020-11-14] MEDS ORDERED: BUPIVACAINE (PF) 0.25% 30 ML VIAL SQ ONE (11:26)
[2020-11-14 11:58] VITALS: TEMP 96.8
[2020-11-14] MEDS ORDERED: Acetaminophen-Codeine 300-30mg TAB PO PRN ×2 (11:58)
[2020-11-14] MEDS ORDERED: METOCLOPRAMIDE 5 MG/ML 2 ML VIAL IVP PRN (11:58)
[2020-11-14] MEDS ORDERED: KETOROLAC 15 MG/ML 1 ML VIAL IVP PRN (11:58)
[2020-11-14] MEDS ORDERED: IBUPROFEN 600 MG TAB PO PRN (11:58)
[2020-11-14] MEDS ORDERED: ONDANSETRON 4 MG/2 ML VIAL IVP PRN (11:58)
[2020-11-14] MEDS ORDERED: diphenhydrAMINE 50 MG/ML 1 ML VIAL IVP PRN (11:58)
[2020-11-14] MEDS ORDERED: SIMETHICONE 80 MG CHEWABLE PO PRN (11:58)
--- NOTE | 2020-11-14 12:04 | P.OP ---
Date of Procedure: 11/14/20 Preoperative Diagnosis: #1. Multiparity #2. Undesired fertility Postoperative Diagnosis: Same Procedure(s) Performed: 1. Laparoscopic bilateral tubal occlusion with Filshie clips Anesthesia: SHIV Surgeon: Rikki Arboleda Estimated Blood Loss (ml): 5 Urine output (ml): 10 Pathology: none sent Condition: stable Disposition: PACU Operative Findings: Preoperative pelvic examination demonstrated a roughly 4-5 week anteverted mobile normal shaped uterus with normal adnexa bilaterally. Intraoperatively, these findings were confirmed with a normal uterus tubes and ovaries. There was no evidence of any pathology or other findings to include endometriosis throughout the pelvis or abdomen. A Filshie clip was placed firmly across the isthmic portion of each tube. The small and large intestine as well as appendix liver and diaphragm were normal to inspection. Description of Procedure: The patient was prepped and draped in usual fashion after general endotracheal anesthesia was administered by the anesthesiologist. The bladder was drained of approximately 10 mL of clear marcus urine. A speculum was placed and the anterior lip of the surgical facility tenaculum allowing placement of an acorn cannula for manipulation. Attention was then turned to the abdomen where a 5 mm incision was made in the semilunar fashion underneath the umbilicus allowing insertion of a 5 mm optical trocar under direct vision station without difficulty. A pneumoperitoneum was created and Trendelenburg positioning utilized to sweep the bowel from the pelvis. A site was selected approximate 4- 57 m above the pubic symphysis in the midline where an 8 mm incision was made in the transverse plane allowing insertion of an 8 mm optical trocar under direct visualization without difficulty. The blunt probe was utilized for this week the bowel from the pelvis and the findings are as noted above. When it was determined there was no pathology, the probe was replaced with a Filshie clip applicator which was utilized to place a Filshie clip across the full thickness of the isthmic portion of the fallopian tube on the right side approximately 3 cm from the cornu of the uterus. A similar operation was carried out on the left side without difficulty. The remainder the pelvis and upper abdomen were examined and the findings were normal as noted above. MENTATION was then removed after evacuating the pneumoperitoneum through the 2 ports. The incisions were closed with interrupted subcuticular stitches of 4-0 Vicryl followed by #Steri-Strips placed with Mastisol. Assessment a blood loss for the case was 5 mL or less. There were no complications. All sponge, instrument, needle counts were correct. The patient tolerated the procedure well and proceeded to the recovery room in stable condition.
[2020-11-14] MEDS: HYDROmorphone 0.5 MG/0.5 ML SYRINGE IVP PRN ×2 (12:39→12:50)
[2020-11-14 15:32] VITALS: BP 121/77; PULSE 74
== END 2020-11-14 15:45 | disposition home or self-care (01) ==
LOC: OR 09:55
PROVIDERS: ATTEND Obstetrics & Gynecology
DX: Z30.2 Encounter for sterilization (principal); Z90.49 Acquired absence of other specified parts of digestive tract
CPT/HCPCS: 81025; 85025; 58671; J2250; J1100; J2405; J2001; J3010; J1170 ×2; J1885; J0330; J2704

== ENCOUNTER 2021-05-16 10:22 | Inpatient (IN) | payer MEDICAID, OTHER ==
--- NOTE | 2021-05-16 10:40 | ED ---
General Adult HPI - General Stated complaint: Sucidal Time Seen by Provider: 05/16/21 10:24 Source: patient, police, EMS, RN notes reviewed Mode of arrival: EMS Limitations: no limitations - History of Present Illness Initial comments: Patient is a pleasant 30-year-old female presenting to the emergency Department with depression. Symptoms have been intermittent but worse recently. Patient is having suicidal thoughts without specific plan. Patient also is starting to hear voices that tell her to do stuff. Patient is not more specific than that. No visual hallucinations. No homicidal thoughts. Patient did drink alcohol last night. Patient does smoke marijuana heavily. - Related Data Home Medications Medication Instructions Recorded Confirmed No Known Home Medications 08/08/20 05/16/21 Allergies Allergy/AdvReac Type Severity Reaction Status Date / Time No Known Allergies Allergy Verified 05/16/21 11:30 Review of Systems ROS Statement: Those systems with pertinent positive or pertinent negative responses have been documented in the HPI. ROS Other: All systems not noted in ROS Statement are negative. Constitutional: Denies: fever Eyes: Denies: eye pain ENT: Denies: ear pain Respiratory: Denies: cough Cardiovascular: Denies: chest pain Endocrine: Denies: fatigue Gastrointestinal: Denies: abdominal pain Genitourinary: Denies: dysuria Musculoskeletal: Denies: back pain Skin: Denies: rash Neurological: Denies: weakness Psychiatric: Reports: depression, auditory hallucinations, suicidal thoughts Past Medical History Past Medical History: No Reported History Additional Past Medical History / Comment(s): PT STATES POSSIBLE HERNIA. History of Any Multi-Drug Resistant Organisms: MRSA Date of last positivie culture/infection: 2013/buttocks MDRO Source:: MRSA Past Surgical History: Cholecystectomy Past Anesthesia/Blood Transfusion Reactions: No Reported Reaction Past Psychological History: Anxiety, Depression Additional Psychological History / Comment(s): . Smoking Status: Former smoker Past Alcohol Use History: None Reported Additional Past Alcohol Use History / Comment(s): QUIT SMOKING 2017 Past Drug Use History: Marijuana Additional Drug Use History / Comment(s): SMOKES DAILY-INSTRUCTED TO REFRAIN FROM USE FOR AT LEAST 24 HOURS PRIOR PROCEDURE. - Past Family History Mother Family Medical History: Hypertension General Exam Limitations: no limitations General appearance: alert, in no apparent distress Head exam: Present: normocephalic Eye exam: Present: normal appearance Neck exam: Present: normal inspection Respiratory exam: Present: normal lung sounds bilaterally Cardiovascular Exam: Present: regular rate, normal rhythm GI/Abdominal exam: Present: soft. Absent: tenderness Extremities exam: Present: normal inspection Neurological exam: Present: alert Psychiatric exam: Present: depressed Skin exam: Present: normal color Course Vital Signs 05/16/21 05/16/21 05/16/21 10:30 10:39 11:39 Temperature 98.1 F Pulse Rate 92 Respiratory 18 16 16 Rate Blood Pressure 138/94 O2 Sat by Pulse 98 Oximetry 05/16/21 12:08 Temperature Pulse Rate Respiratory 16 Rate Blood Pressure O2 Sat by Pulse Oximetry Medical Decision Making - Medical Decision Making Patient seen by mental health services with plan for admission. Positive clinical certificate completed. - Lab Data Lab Results 05/16/21 Range/Units 10:51 Urine Opiates Screen Not Detected (NotDetected) Ur Oxycodone Screen Not Detected (NotDetected) Urine Methadone Screen Not Detected (NotDetected) Ur Propoxyphene Screen Not Detected (NotDetected) Ur Barbiturates Screen Not Detected (NotDetected) U Tricyclic Antidepress Not Detected (NotDetected) Ur Phencyclidine Scrn Not Detected (NotDetected) Ur Amphetamines Screen Not Detected (NotDetected) U Methamphetamines Scrn Not Detected (NotDetected) U Benzodiazepines Scrn Not Detected (NotDetected) Urine Cocaine Screen Not Detected (NotDetected) U Marijuana (THC) Screen Detected H (NotDetected) Disposition Clinical Impression: Depression, Suicidal ideation Disposition: TRANSFER TO PSYCH HOSP/UNIT Is patient prescribed a controlled substance at d/c from ED?: No Referrals: Barbra Bhatti DO [Primary Care Provider] - 1-2 days Decision Time: 12:48
[2021-05-16 11:45] LABS: Amphetamine Screen,Urine Not Detected (NotDetected); Barbiturate Screen,Urine Not Detected (NotDetected); Benzodiazepines Screen,Urine Not Detected (NotDetected); Cocaine Screen,Urine Not Detected (NotDetected); Methadone Screen, Urine Not Detected (NotDetected); Opiate Screen,Urine Not Detected (NotDetected); Oxycodone Screen, Urine Not Detected (NotDetected); Phencyclidine Screen,Urine Not Detected (NotDetected); Tricyclic Antidepressant,Urine Not Detected (NotDetected); Urn Cannabinoid Scrn Detected (NotDetected)
[2021-05-16 14:50] VITALS: TEMP 98.8
[2021-05-16] MEDS ORDERED: MAG HYDROX/AL HYDROX/SIMETH 30 ML CUP PO PRN (14:53)
[2021-05-16] MEDS ORDERED: MAGNESIUM HYDROXIDE 2,400 MG/10 ML CUP PO PRN (14:53)
[2021-05-16] MEDS ORDERED: LORazepam 1 MG TAB PO PRN (14:53)
[2021-05-16] MEDS ORDERED: LORazepam 2 MG/ML INJ IM PRN (14:55)
[2021-05-16] MEDS ORDERED: HALOPERIDOL LACTATE 5 MG/ML 1 ML VIAL IM PRN (14:56)
[2021-05-16] MEDS ORDERED: haloperidoL 5 MG TAB PO PRN (14:56)
[2021-05-16] MEDS: traZODone HCL 50 MG TAB PO SCH (20:59)
--- NOTE | 2021-05-16 22:29 | P.CONS ---
History of Present Illness - Reason for Consult Consult date: 05/16/21 - History of Present Illness the patient was seen with the mental health unit [facility]. I was never alone with the patient The patient is a 30-year-old female with a PMH of marijuana abuse and multiple psychiatric illnesses who presented to the emergency room with complaints of depression and suicidal ideation. the patient was admitted to the mental health unit where she was seen and evaluated. She reported feeling about the same since her admission to the hospital. She denied any active physical complaints. She denied chest discomfort, shortness of breath, fever, chills, cough. Denied nausea, vomiting, abdominal pain, diarrhea. She further denied tobacco or alcohol use. Reports occasional marijuana use. Review of systems: Pertinent positives and negatives as discussed in HPI, a complete review of systems was performed and all other systems are negative. Physical examination: General: non toxic, no distress, appears at stated age, obese Derm: no unusual rashes/lesions no unusual ecchymoses, warm, dry Head: atraumatic, normocephalic, symmetric Eyes: EOMI, no lid lag, anicteric sclera, pupils equal round reactive to light ENT: Nose and ears atraumatic, no thrush, no pharyngeal erythema Neck: No thyromegaly, no cervical lymphadenopathy, trachea midline, supple Mouth: no lip lesion, mucus membranes moist Cardiovascular: S1S2 reg, no murmur, positive posterior tibial pulse bilateral, no edema, capillary refill less than 2 seconds Lungs: CTA bilateral, no rhonchi, no rales , no accessory muscle use Abdominal: soft, nontender to palpation, no guarding, no appreciable organomegaly, normal bowel sounds Ext: no gross muscle atrophy, muscle strength 5 out of 5 in all 4 extremities grossly, no contractures, Neuro: CN II-XI grossly intact, light touch intact all 4 extremities, finger to nose within normal limits, Psych: Alert, oriented, appropriate affect Assessment/plan Marijuana abuse -advised on the importance of cessation Depression and suicidal ideation -As per psychiatry Thank you for allowing us to participate in the care of this patient. We will follow peripherally. Do not hesitate to contact us with questions. Someone can be reached from the [facility] hospitalist group at all hours of the day at [phone]. Past Medical History Past Medical History: No Reported History Additional Past Medical History / Comment(s): PT STATES POSSIBLE HERNIA. History of Any Multi-Drug Resistant Organisms: MRSA Year Discovered:: 2013/buttocks MDRO Source:: MRSA Past Surgical History: Cholecystectomy Past Anesthesia/Blood Transfusion Reactions: No Reported Reaction Past Psychological History: Anxiety, Depression Additional Psychological History / Comment(s): . Smoking Status: Former smoker Past Alcohol Use History: None Reported Additional Past Alcohol Use History / Comment(s): QUIT SMOKING 2017 Past Drug Use History: Marijuana Additional Drug Use History / Comment(s): SMOKES DAILY-INSTRUCTED TO REFRAIN FROM USE FOR AT LEAST 24 HOURS PRIOR PROCEDURE. - Past Family History Mother Family Medical History: Hypertension Medications and Allergies Home Medications Medication Instructions Recorded Confirmed Type No Known Home Medications 08/08/20 05/16/21 History Allergies Allergy/AdvReac Type Severity Reaction Status Date / Time No Known Allergies Allergy Verified 05/16/21 11:30 Physical Exam Vitals: Vital Signs Temp Pulse Pulse Resp BP BP Pulse Ox 05/16/21 14:49 98.8 F 86 14 118/75 05/16/21 12:08 16 05/16/21 11:39 16 05/16/21 10:39 16 05/16/21 10:30 98.1 F 92 18 138/94 98 Intake and Output 05/16/21 05/16/21 05/16/21 06:59 14:59 22:59 Other: Weight 99.79 kg Results Labs: Abnormal Lab Results - Last 24 Hours (Table) 05/16/21 Range/Units 10:51 U Marijuana (THC) Screen Detected H (NotDetected)
[2021-05-17 07:06] LABS: ALT 18 U/L (4-34); AST 23 U/L (14-36); African American GFR (CKD) >90 (>60 ml/min/1.73 sqM); Albumin 3.9 g/dL (3.5-5.0); Alkaline Phosphatase 69 U/L (38-126); Anion Gap 6 mmol/L; Basophils % (A) 0 %; Blood Urea Nitrogen 16 mg/dL (7-17); Carbon Dioxide 27 mmol/L (22-30); Chloride 105 mmol/L (98-107); Eosinophils # (A) 0.1 k/uL (0-0.7); Eosinophils % (A) 1 %; Glucose 101 mg/dL (74-99); HCT 42.9 % (34.0-46.0); HGB 13.9 gm/dL (11.4-16.0); Lymphocytes # (A) 1.7 k/uL (1.0-4.8); Lymphocytes % (A) 21 %; MCH 29.2 pg (25.0-35.0); MCHC 32.3 g/dL (31.0-37.0); MCV 90.4 fL (80.0-100.0); Mean Platelet Volume 8.1; Monocytes # (A) 0.5 k/uL (0-1.0); Monocytes % (A) 6 %; Neutrophils # (A) 5.8 k/uL (1.3-7.7); Neutrophils % (A) 70 %; Non-African American GFR(CKD) >90 (>60 ml/min/1.73 sqM); Platelet Count 273 k/uL (150-450); Potassium 4.1 mmol/L (3.5-5.1); RBC 4.75 m/uL (3.80-5.40); RDW 13.9 % (11.5-15.5); Sodium 138 mmol/L (137-145); Total Bilirubin 0.5 mg/dL (0.2-1.3); Total Protein 6.3 g/dL (6.3-8.2); WBC 8.3 k/uL (3.8-10.6)
[2021-05-17] MEDS ORDERED: NICOTINE 14MG/24HR PATCH TRANSDERM SCH (09:00)
[2021-05-17] MEDS: ACETAMINOPHEN TAB 325 MG TAB PO PRN ×2 (09:17→23:52)
[2021-05-17] MEDS ORDERED: FLUoxetine HCL 20 MG CAP PO STA (11:39)
[2021-05-17] MEDS ORDERED: ARIPiprazole 5 MG TAB PO STA (11:40)
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
[2021-05-17 14:08] LABS: Appearance,Urine Cloudy (Clear); Bilirubin,Urine Negative (Negative); Blood,Urine Small (Negative); Color,Urine Yellow; Glucose,Urine (UA) Negative (Negative); Ketones,Urine Trace (Negative); Leukocyte Esterase,Urine Large (Negative); Mucus,Urine Many /hpf; Nitrite,Urine Negative (Negative); Protein,Urine 1+ (Negative); RBC,Urine 2 /hpf (0-5); Specific Gravity,Urine 1.037 (1.001-1.035); Squamous Epithelial Cell,Urine 9 /hpf (0-4); Urobilinogen,Urine <2.0 mg/dL (<2.0); WBC,Urine 23 /hpf (0-5)
[2021-05-17] MEDS: PRAZOSIN 1 MG CAP PO SCH (20:50)
[2021-05-17] MEDS: traZODone HCL 50 MG TAB PO SCH (20:50)
[2021-05-17 20:53] VITALS: RESP 16
[2021-05-18] MEDS: ARIPiprazole 5 MG TAB PO SCH (08:40)
[2021-05-18] MEDS: FLUoxetine HCL 10 MG CAP PO SCH (08:40)
[2021-05-18] MEDS: ACETAMINOPHEN TAB 325 MG TAB PO PRN (09:04)
--- NOTE | 2021-05-18 11:44 | P.PN ---
Progress Note - Text Progress Note Date: 05/18/21 Interval History: Patient was seen attending and participating in group and was directable and agreeable to speak with assembly instructions writer in the office. The patient is reporting that she is feeling better today. She is currently not reporting any suicidal or homicidal ideation, intention, and/or plan. She is not reporting any auditory or visual hallucinations. She reports no paranoia or other delusions. The patient states that her boyfriend was able to visit her last night and that the meeting went well. She reports that the relationship appears to be improving. She does report that she had some difficulty with sleep last night but attributes that to napping during the day. The patient did report that she did not express any nightmares last night. The patient has been adherent with her medications but does endorse some mild "shakiness"as side effects of the medication regimen. She otherwise reports that they are tolerable at this time. The patient reports no self harming urges. The patient states that this was "the break I needed from all the stress at home." Mental Status Exam: General Appearance: Patient appears to be stated age is alert, directable, and cooperative. The patient has an obese body habitus, multiple freckles, and is wearing a bright tie-dyed hooded sweatshirt. Behavior: Patient is calmly seated without any agitated behavior. Approach is cooperative and polite. Eye contact is appropriate. Psychomotor activity is normal. Speech: Patient's speech is fluent and nonpressured. Spontaneous, with normal rate, tone, volume. Mood/Affect: Mood is improving, affect is congruent and euthymic to bright. Suicidality/Homicidality: Patient denies having any suicidal or homicidal ideation intent or plan. Perceptions: Patient denies any visual hallucinations and denies any auditory hallucinations Though content/process: There is no evidence of any delusional thought content and thought process is linear and goal-directed. Memory and concentration: AOX3, grossly intact for the purposes of this session Judgment and insight: Improving mildly Vital Signs Temp 98.8 F 05/16/21 14:49 Pulse 75 05/17/21 20:45 Resp 16 05/17/21 20:45 BP 134/85 05/17/21 20:45 Pulse Ox 97 05/17/21 20:45 Laboratory Results - Last 24 Hours 05/17/21 05/17/21 13:43 13:43 Urine Color Yellow Urine Appearance Cloudy H Urine pH 6.0 Ur Specific [place] 1.037 H Urine Protein 1+ H Urine Glucose (UA) Negative Urine Ketones Trace H Urine Blood Small H Urine Nitrite Negative Urine Bilirubin Negative Urine Urobilinogen <2.0 Ur Leukocyte Esterase Large H Urine RBC 2 Urine WBC 23 H Ur Squamous Epith Cells 9 H Urine Mucus Many H Urine HCG, Qual Not Detected Assessment Major depressive disorder, with anxious features Posttraumatic stress disorder Cluster B personality traits Cannabis use disorder Psychosis, unspecified - likely secondary to cannabis abuse Plan: -Patient continues to meet criteria for inpatient psychiatric admission for symptom stabilization and safety. Patient has signed adult voluntary form and medication consent and was placed in patient's chart. -Medications: Increase Prozac to 30 mg by mouth daily for depression/anxiety/PTSD Increase Abilify to 5 mg by mouth daily for mood augmentation/psychosis Continue trazodone 50 mg by mouth at bedtime for insomnia Continue prazosin 1 mg by mouth at bedtime for PTSD related nightmares -When necessary Ativan and Haldol for agitation/aggression. -NRT - nicotine patch -SW on board for discharge planning. Encouraged the patient to participate in milieu.
[2021-05-18 18:05] VITALS: BP 128/67; PULSE 87
[2021-05-18] MEDS: PRAZOSIN 1 MG CAP PO SCH (20:31)
[2021-05-18] MEDS: traZODone HCL 50 MG TAB PO SCH (20:31)
[2021-05-19] MEDS: ARIPiprazole 5 MG TAB PO SCH (09:01)
[2021-05-19] MEDS: FLUoxetine HCL 10 MG CAP PO SCH (09:01)
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
== END 2021-05-19 10:05 | disposition home or self-care (01) | DRG 885 ==
LOC: EC 10:22 → 3MHU 13:41
PROVIDERS: ADMIT Psychiatry & Neurology Psychiatry; ATTEND Psychiatry & Neurology Psychiatry
DX: F33.3 Major depressive disorder, recurrent, severe with psychotic symptoms (principal); F12.151 Cannabis abuse with psychotic disorder with hallucinations; R45.851 Suicidal ideations; E66.9 Obesity, unspecified; Z68.34 Body mass index [BMI] 34.0-34.9, adult; F41.9 Anxiety disorder, unspecified; F43.10 Post-traumatic stress disorder, unspecified; F60.89 Other specific personality disorders; G47.00 Insomnia, unspecified; Z56.0 Unemployment, unspecified; Z59.0 Homelessness; Z79.899 Other long term (current) drug therapy; Z82.49 Family history of ischemic heart disease and other diseases of the circulatory system; Z87.891 Personal history of nicotine dependence; Z91.5 Personal history of self-harm; Z86.14 Personal history of Methicillin resistant Staphylococcus aureus infection; Z90.49 Acquired absence of other specified parts of digestive tract; Z71.51 Drug abuse counseling and surveillance of drug abuser; Z63.5 Disruption of family by separation and divorce; Z62.810 Personal history of physical and sexual abuse in childhood
CPT/HCPCS: 80053; 80306; 81001; 81025; 82075; 84443; 85025; 99285

== ENCOUNTER 2022-08-22 11:11 | Emergency (ER) | payer OTHER ==
[2022-08-22 11:30] VITALS: TEMP 97
--- NOTE | 2022-08-22 11:54 | ED ---
URI HPI - General Chief Complaint: Upper Respiratory Infection Stated Complaint: fever, cough Time Seen by Provider: 08/22/22 11:16 Source: patient, EMS, RN notes reviewed Mode of arrival: EMS Limitations: no limitations - History of Present Illness Initial Comments: This a 32-year-old female sent emergency Department chief complaint of cough congestion states been sick for a long period time she was recent seen in a urinary facility was placed on antibiotics for right ear infection. Patient states that she's not been having increasing congestion, cough. Patient denies any history of asthma no prior lung disease denies reported fever states Cold Flashes, Some Diarrhea. Patient Has 2 Kids with Similar Symptoms. - Related Data Previous Rx's Medication Instructions Recorded ARIPiprazole [Abilify] 5 mg PO DAILY 30 Days tab 05/19/21 FLUoxetine HCL [PROzac] 30 mg PO DAILY 30 Days cap 05/19/21 Prazosin [Minipress] 1 mg PO HS 30 Days cap 05/19/21 traZODone HCL [Desyrel] 50 mg PO HS 30 Days tab 05/19/21 Allergies Allergy/AdvReac Type Severity Reaction Status Date / Time No Known Allergies Allergy Verified 05/16/21 11:30 Review of Systems ROS Statement: Those systems with pertinent positive or pertinent negative responses have been documented in the HPI. ROS Other: All systems not noted in ROS Statement are negative. Past Medical History Past Medical History: No Reported History Additional Past Medical History / Comment(s): PT STATES POSSIBLE HERNIA. History of Any Multi-Drug Resistant Organisms: MRSA Date of last positivie culture/infection: 2013/buttocks MDRO Source:: MRSA Past Surgical History: Cholecystectomy Past Anesthesia/Blood Transfusion Reactions: No Reported Reaction Past Psychological History: Anxiety, Depression Smoking Status: Former smoker Past Alcohol Use History: Occasional Past Drug Use History: Marijuana - Past Family History Mother Family Medical History: Hypertension General Exam Limitations: no limitations General appearance: alert, in no apparent distress Head exam: Present: atraumatic, normocephalic, normal inspection Eye exam: Present: normal appearance, PERRL, EOMI. Absent: scleral icterus, conjunctival injection, periorbital swelling ENT exam: Present: normal exam, normal oropharynx, mucous membranes moist Neck exam: Present: normal inspection, full ROM. Absent: tenderness, meningismus, lymphadenopathy Respiratory exam: Present: wheezes, rhonchi. Absent: respiratory distress, rales, stridor Cardiovascular Exam: Present: regular rate, normal rhythm, normal heart sounds. Absent: systolic murmur, diastolic murmur, rubs, gallop, clicks Neurological exam: Present: alert Course Vital Signs 08/22/22 08/22/22 11:23 11:57 Temperature 97 F L Pulse Rate 77 Respiratory 15 16 Rate Blood Pressure 134/89 O2 Sat by Pulse 98 Oximetry Medical Decision Making - Medical Decision Making 32-year-old presented for cough congestion. Patient is RSV positive. Patient is no sinus distress. Patient be discharged in stable condition, return parameters were discussed. - Lab Data Lab Results 08/22/22 Range/Units 11:47 Influenza Type A (PCR) Not Detected (Not Detectd) Influenza Type B (PCR) Not Detected (Not Detectd) RSV (PCR) Detected A (Not Detectd) SARS-CoV-2 (PCR) Not Detected (Not Detectd) Disposition Clinical Impression: RSV infection Disposition: HOME SELF-CARE Condition: Stable Instructions (If sedation given, give patient instructions): Respiratory Syncytial Virus (ED) Additional Instructions: Please return to the Emergency Department if symptoms worsen or any other concerns. Is patient prescribed a controlled substance at d/c from ED?: No Referrals: None,Stated [Primary Care Provider] - 1-2 days Time of Disposition: 12:45
--- NOTE | 2022-08-22 12:18 | XR ---
EXAMINATION TYPE: XR chest 2V DATE OF EXAM: 08/22/2022 COMPARISON: 01/30/2019 HISTORY: Cough TECHNIQUE: Frontal and lateral views of the chest are obtained. FINDINGS: There is no focal air space opacity. No evidence for pneumothorax. No pleural effusion. The cardiac silhouette size is within normal limits. The osseous structures are grossly intact. IMPRESSION: 1. No acute cardiopulmonary process.
[2022-08-22 13:20] VITALS: BP 129/78; PULSE 81; RESP 17
== END 2022-08-22 13:00 | disposition home or self-care (01) ==
LOC: EC 11:11
DX: J06.9 Acute upper respiratory infection, unspecified (principal); B97.4 Respiratory syncytial virus as the cause of diseases classified elsewhere; F41.9 Anxiety disorder, unspecified; F32.A Depression, unspecified; F12.90 Cannabis use, unspecified, uncomplicated; Z87.891 Personal history of nicotine dependence; Z20.822 Contact with and (suspected) exposure to COVID-19
CPT/HCPCS: 71046; 87636; 99285